=== PATIENT | female | born 1955 | race Caucasian/White ===

== ENCOUNTER 2021-02-19 13:51 | Outpatient (REF) | payer MEDICARE, OTHER, SELFPAY ==
[2021-02-19 15:19] LABS: Influenza A PCR NEGATIVE (Negative); Influenza B PCR NEGATIVE (Negative); Resp Syncy Virus RNA Qual PCR NEGATIVE (Negative); SARS COV2 PCR INHOUSE POSITIVE (Negative)
== END 2021-02-19 13:52 | disposition home or self-care (01) ==
LOC: HO.LNP 13:51
PROVIDERS: Visit Provider Physician Assistant Medical
DX: Z20.822 Contact with and (suspected) exposure to COVID-19 (principal); J06.9 Acute upper respiratory infection, unspecified
CPT/HCPCS: 0241U

== ENCOUNTER 2022-10-30 14:32 | Outpatient (AMB) | payer OTHER, SELFPAY ==
--- NOTE | 2022-10-30 14:58 | AM.OFFWIN_ITS ---
Intake Vital Signs 10/30/22 15:02 Height 5 ft 1 in BP 170/120 H Blood Pressure Location Rt brachial Position Sitting Pulse 94 Pulse Source Pulse Oximeter Temp 97.1 F Temp Source Oral Pulse Oximetry (%) 97 Oxygen Delivery Method Room Air Intake Visit Reasons: [employer]YST[employer]/right hand ring finger bruise Intake Note: Pt is here today for finger bruised and swelling from being caught in door at work. Patient Tobacco Use Status: Never used Tobacco Allergies nifedipine [From PROCARDIA] Allergy (Severe, Verified 10/30/22 15:03) HIVES Procardia Allergy (Unknown, Uncoded 02/19/21 10:38) tachycardia, flushing Do you need a note to return to daycare/school/sports/work: Yes HPI [employer]/right hand ring finger bruise HPI Details Patient is a 66-year-old female comes the walk-in clinic complaining of pain swelling and bruising to the tip of her right 4th finger after she struck it on a door frame pushing a large metal cart early this morning. She did not remove her rings yet. Symptoms have been worsening throughout the day. She states that she has been icing the area and elevating it since the injury. Some tenderness, tingling and decreased range of motion to the tip of the finger. [facility] Social History Patient Tobacco Use Status: Never used Tobacco Review of Systems Const All systems reviewed & are unremarkable except as noted in HPI and below Physical Exam Vital Signs: Last Vital Signs Temp 97.1 F 10/30/22 15:02 Pulse 94 10/30/22 15:02 BP 170/120 H 10/30/22 15:02 Pulse Ox 97 10/30/22 15:02 Oxygen Delivery Method Room Air 10/30/22 15:02 Results Reviewed Results Reviewed: Plain film x-ray today shows nondisplaced tuft fracture of the right ring finger. Assessment & Plan Assessment & Plan (1) Finger fracture: Code(s): S62.609A - Fracture of unspecified phalanx of unspecified finger, initial encounter for closed fracture Qualifiers: Encounter type: initial encounter Finger: ring finger Fracture alignment: nondisplaced Fracture type: closed Laterality: right Phalanx: distal Qualified Code(s): S62.664A - Nondisplaced fracture of distal phalanx of right ring finger, initial encounter for closed fracture Plan: Patient has sustained a nondisplaced closed tuft fracture of the right ring finger. Her rings were removed today, and she was put in a foam and metal finger splint. We discussed keeping it elevated for least 24 hours and icing it every 2-4 hours, until swelling resolves. She was given a work note for light duty starting Thursday, to avoid grasping and pinching with the finger and to working with a splint. She knows she will need to follow up with an occupational Health Clinic or her own provider for full clearance to return to work duties. Orders: Orders XR finger RT min 2V 10/30/22 S69.90XA - Unspecified injury of unspecified wrist, hand and finger(s), initial encounter Coding Level of Care Code Est Pt Level 4 (43373) Diagnoses Finger fracture S62.664A Encounter type: initial encounter Finger: ring finger Fracture alignment: nondisplaced Fracture type: closed Laterality: right Phalanx: distal
[2022-10-30 15:02] VITALS: BP 170/120; PULSE 94; TEMP 36.2; O2SAT 97
== END 2022-10-30 16:00 | disposition home or self-care (01) ==
PROVIDERS: PCP Nurse Practitioner Adult Health; Visit Provider Physician Assistant Medical
DX: S62.664A Nondisplaced fracture of distal phalanx of right ring finger, initial encounter for closed fracture (principal)
CPT/HCPCS: 99214

== ENCOUNTER 2022-10-30 15:10 | Outpatient (REF) | payer OTHER, SELFPAY ==
--- NOTE | ~2022-10-30 | XR_ITS ---
EXAMINATION: XR FINGER, RIGHT CLINICAL INFORMATION: Pain and trauma to right fourth digit COMPARISON: None available. TECHNIQUE: 3 views of the right hand with attention to the ring finger. FINDINGS: The patient has undergone fusion of the DIP joint of the middle finger. There is a nondisplaced fracture of the top of the fourth finger extending to at least the volar articular surface. Arthritic changes are noted in the DIP joint of the little finger, to a lesser extent ring finger at the basal joint of the thumb. XR/XR finger RT min 2V IMPRESSION: 1. Nondisplaced fracture of the distal tuft of the right ring finger. 2. Prior fusion of the DIP joint of the middle finger. 3. Arthropathy of the DIP joint of the ring and little fingers and the basal joint of the thumb with an appearance in the pinky finger suggesting inflammatory osteoarthritis.
== END 2022-10-30 15:11 | disposition home or self-care (01) ==
LOC: HO.HMGCX 15:10
PROVIDERS: Visit Provider Physician Assistant Medical
DX: S69.91XA Unspecified injury of right wrist, hand and finger(s), initial encounter (principal)
CPT/HCPCS: 73140

== ENCOUNTER 2024-09-13 13:45 | Outpatient (AMB) | payer MEDICARE, OTHER, SELFPAY ==
[2024-09-13 13:51] VITALS: BP 168/100; PULSE 96; O2SAT 97; BMI 34.2
--- NOTE | 2024-09-13 13:51 | A.OFFPC_ITS ---
Vital Signs 09/13/24 13:51 Height 5 ft 1 in Weight 181 lb 2 oz BMI 34.2 BP 168/100 H Blood Pressure Location Lt brachial Position Sitting Pulse 96 Pulse Source Pulse Oximeter Pulse Oximetry (%) 97 Oxygen Delivery Method Room Air Intake Visit Reasons: Establish Care Metabolic Specialist Required: No Accompanied by: Self / Same As Patient Allergies nifedipine [From PROCARDIA] Allergy (Severe, Verified 09/13/24 13:51) HIVES Procardia Allergy (Unknown, Uncoded 09/13/24 13:51) tachycardia, flushing Medication List - Last Reconciled 09/13/24 by Tamiko Solis MD acetaminophen 1,000 mg PO Q6H PRN albuterol sulfate 90 mcg/actuation 2 puffs inhalation Q6H PRN aspirin 81 mg PO DAILY atorvastatin 40 mg PO DAILY losartan 50 mg PO DAILY metoprolol succinate ER 25 mg PO DAILY pantoprazole 40 mg PO DAILY Tobacco use date assessed: 09/13/24 Fall risk assessment: No Falls in past year Last assessed Fall Risk: 09/13/24 Dental Screening Dental Screen Date: 09/13/24 Did you have a dental visit in the last 12 months?: No Did you have a dental problem in the last 6 months where you did not have access to dental care?: No Was dental information given to patient?: No PFSH Medical History (Updated 09/13/24 @ 14:32 by Tamiko Solis MD) Polio Surgical History (Updated 09/13/24 @ 14:18 by Tamiko Solis MD) Hx of cholecystectomy S/P NANCY (total abdominal hysterectomy) Hx of tonsillectomy History of appendectomy History of temporal artery biopsy History of lumbar surgery History of bladder surgery Family History (Updated 09/13/24 @ 14:00 by BARI Rolon) Other Pancreatic cancer Stomach cancer Stroke Social History (Updated 09/13/24 @ 14:20 by Tamiko Solis MD) Housing: House Alcohol intake: never Patient Tobacco Use Status: Never used Tobacco e-Cigarette/Vaping Use: Never Used service: No Current occupational status: employed Current occupational exposures/hazards: No Cognitive needs: No Hearing needs: No Vision needs: Yes Questionnaire PHQ-9 Over the last 2 weeks, how often have you been bothered by any of the following problems? 1. Little interest or pleasure in doing things: several days 2. Feeling down, depressed, or hopeless: several days 3. Trouble falling or staying asleep, or sleeping too much: not at all 4. Feeling tired or having little energy: not at all 5. Poor appetite or overeating: not at all 6. Feeling bad about yourself - or that you are a failure or have let yourself or your family down: not at all 7. Trouble concentrating on things, such as reading the newspaper or watching television: not at all 8. Moving or speaking so slowly that other people could have noticed. Or the opposite - being so fidgety or restless that you have been moving around a lot more than usual: not at all 9. Thoughts that you would be better off or of hurting yourself in some way: not at all Total score: 2 Source: Developed by Drs. Camilo Mahoney, Beti Castro, Marc Vasquez and colleagues, with an educational georgi from [employer]. Thrive Questionnaire Date Thrive assessed: 09/13/24 I am a: Patient What is your living situation today?: I have a steady place to live Within the past 12 months, did the food you bought not last and you didn't have the money to get more?: Sometimes True Within the past 12 months, did you worry whether your food would run out before you got money to buy more?: I choose not to answer this question Do you have trouble paying for medicines?: No Do you have trouble getting transportation to medical appointments?: No Do you have trouble paying your heating and electricity bill?: No Do you have trouble taking care of your child, family member or friend?: No Do you have trouble with day-to-day activities such as bathing, preparing meals, shopping, managing finances, etc.?: No Are you currently unemployed and looking for a job?: No Are you interested in more education?: No Please select the resources that you would like help with: None Currently or been in a relationship where the following occur: No concerns reported THRIVE Score: 1 AUDIT C Alcohol Use Questionnaire (AUDIT-C) 1. How often do you have a drink containing alcohol?: Never 3. How often do you have six or more drinks on one occasion?: Never Total Score: 0 JESSICA-7 AMB Questionnaire JESSICA-7 Date JESSICA - 7 assessed: 09/13/24 Feeling nervous, anxious, or on edge: 1 = Several days Not being able to stop or control worryin = Several days Worrying too much about different things: 1 = Several days Trouble relaxin = Not at all Being so restless that it is hard to sit still: 0 = Not at all Becoming easily annoyed or irritable: 0 = Not at all Feeling afraid as if something awful might happen: 1 = Several days Total JESSICA-7 score (0-4 normal; 5-9 mild; 10-14 moderate; 15-21 severe): 4 Source: Developed by Drs. Camilo Mahoney, Beti Castro, Marc Vasquez and colleagues, with an educational georgi from [employer]. Physical exam (Primary Care) Vital Signs: Last Vital Signs Pulse 96 09/13/24 13:51 BP 168/100 H 09/13/24 13:51 Pulse Ox 97 09/13/24 13:51 Oxygen Delivery Method Room Air 09/13/24 13:51 BMI result Body Mass Index 34.2 Tobacco/Smoking Status: Tobacco use Status Tobacco use date assessed 09/13/24 09/13/24 14:01 Patient Tobacco Use Status Never used Tobacco 09/13/24 14:20 e-Cigarette/Vaping Use Never Used 09/13/24 14:20 PHQ-9: PHQ-9 Score PHQ-9: Total score 2 09/13/24 14:01 Thrive Assessment: Date of Thrive Assessment Date Thrive assessed 09/13/24 09/13/24 14:01 Currently or been in a relationship where the following occur: No concerns reported Const General: alert; No acute distress Eyes Conjunctivae: conjunctivae normal Resp Auscultation: clear to auscultation bilaterally Cardio Rate: regular rate Rhythm: regular rhythm GI Inspection: Yes normal to inspection Extrem General: Yes normal to inspection and No edema Coding Level of Care Code New Pt Level 4 (02856) Diagnoses Obesity (BMI 30-39.9) E66.9 Impaired glucose tolerance R73.02 GERD (gastroesophageal reflux disease) K21.9 Hypercholesterolemia E78.00 Hypertension I10 Asthma J45.909 Major depression F32.9 Celiac disease K90.0 Osteopenia M85.80 Breast cancer screening by mammogram Z12.31 Knee pain, left M25.562 Assessment & Plan Assessment & Plan (1) Obesity (BMI 30-39.9): Code(s): E66.9 - Obesity, unspecified Category: Medical Plan: Diet and exercise (2) Impaired glucose tolerance: Code(s): R73.02 - Impaired glucose tolerance (oral) Category: Medical Plan: Decrease the amount of carbohydrate intake, pasta, bread, rice and potatoes are all sugar and that is aside from all the sweet stuff, remember that fruits are good but they are Sweet also. (3) GERD (gastroesophageal reflux disease): Code(s): K21.9 - Gastro-esophageal reflux disease without esophagitis Category: Medical Plan: Avoid the foods that causes that usually spicy foods, tomato products, juices, coffee, soda and foods that your sensitive to. After eating do not lie down, allow 3-4 hours before in lie down. And keep the head of bed above 30 degrees to avoid the acid from going up. (4) Hypercholesterolemia: Code(s): E78.00 - Pure hypercholesterolemia, unspecified Category: Medical Plan: Avoid fried foods, chicken skin, eggs, butter margarine, pastries and meat. Be it pork or beef they have a lot of cholesterol LDL goal of less than 130 and triglyceride of less than 150 patient is on atorvastatin 40 mg once (5) Hypertension: Code(s): I10 - Essential (primary) hypertension Category: Medical Plan: Continue with blood pressure medication. Decrease salt intake and exercise on losartan 50 mg once a day metoprolol 25 mg once a day (6) Asthma: Code(s): J45.909 - Unspecified asthma, uncomplicated Category: Medical (7) Major depression: Code(s): F32.9 - Major depressive disorder, single episode, unspecified Category: Medical (8) Celiac disease: Code(s): K90.0 - Celiac disease Category: Medical (9) Osteopenia: Code(s): M85.80 - Other specified disorders of bone density and structure, unspecified site Category: Medical (10) Breast cancer screening by mammogram: Code(s): Z12.31 - Encounter for screening mammogram for malignant neoplasm of breast Category: Medical (11) Knee pain, left: Code(s): M25.562 - Pain in left knee Category: Medical Plan History of Present Illness The patient is a 68-year-old female presenting for a comprehensive wellness visit and management of chronic conditions. She has a history of hypertension, hypercholesterolemia, gastroesophageal reflux disease (GERD), impaired glucose tolerance, and anxiety disorder. She has been off medications for a period due to losing contact with her previous physician, leading to a hospitalization in June where medications were reinstated. In 2022, an x-ray revealed a nondisplaced fracture of the distal tuft of the right ring finger, with prior fusion of the DIP joint of the middle finger and arthropathy in multiple finger joints, suggesting inflammatory osteoarthritis. The patient reports a history of asthma, managed with an inhaler as needed, and celiac disease, which complicates dietary choices due to gluten restrictions. She has a history of osteopenia, identified in a bone density test two years ago, and polio, which affected her left leg, midsection, and right arm. Atherosclerosis was identified following a biopsy for suspected temporal arteritis, which was negative for autoimmune conditions. The patient also has a hiatal hernia contributing to severe GERD symptoms, including difficulty swallowing at times. 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 - Substance Use: Denies alcohol and recreational drug use, minimal history of smoking - Exercise: Encouraged to exercise regularly to maintain muscle mass - Diet: Advised to focus on plant proteins and reduce sodium intake Review of Systems - Respiratory: Reports asthma, managed with inhaler as needed - Gastrointestinal: Reports severe GERD symptoms, including difficulty swallowing at times - Musculoskeletal: 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 Clear to auscultation bilaterally Cardiovascular: Regular rate and rhythm. Normal S1 and S2 GI: Normal to inspection. Soft to palpation and nontender Skin: No rashes or lesions noted Neuro: Patient oriented x3 Extremities: Normal to inspection Results - X-ray (2022): Nondisplaced fracture of the distal tuft of the right ring finger, prior fusion of the DIP joint of the middle finger, arthropathy in multiple finger joints - Blood work (2019): Normal blood count and electrolytes, mildly elevated glucose, normal liver function tests Plan The patient will continue on atorvastatin 40 mg daily to manage hypercholesterolemia, with a target LDL goal of less than 130 mg/dL and triglycerides less than 150 mg/dL. Blood pressure management will include losartan 50 mg and metoprolol 25 mg daily. For GERD, pantoprazole will be continued to manage symptoms, and dietary modifications will be encouraged to reduce reflux episodes. The patient is advised to avoid high-sodium foods and maintain hydration to support blood pressure control. A referral for counseling and psychiatric evaluation will be made to address anxiety and depression, with an emphasis on non-pharmacological interventions. Regular exercise and a diet focusing on plant proteins are recommended to support overall health and weight management. Preventative care measures include scheduling a mammogram and bone density test, as well as fasting blood work to monitor glucose, cholesterol, thyroid, , and vitamin D levels. Patient was informed and verbally consented to the use of an ambient scribe for clinic note documentation during this visit. Discussion Notes During the visit, I discussed the importance of managing hypercholesterolemia with atorvastatin and maintaining blood pressure control with losartan and metoprolol. We reviewed the need for dietary changes to manage GERD and the importance of hydration and low sodium intake for blood pressure management. I emphasized the role of counseling and psychiatric evaluation for anxiety and depression, highlighting non-pharmacological approaches. Preventative care, including mammogram, bone density test, and fasting blood work, was also discussed to monitor and maintain overall health. Patient Instructions - Continue taking atorvastatin, losartan, and metoprolol as prescribed. - Take pantoprazole for GERD and follow dietary recommendations to reduce symptoms. - Maintain a low-sodium diet and stay hydrated to support blood pressure control. - Engage in regular exercise and focus on a diet rich in plant proteins. - Schedule and attend appointments for mammogram, bone density test, and blood work. - Follow up with counseling and psychiatric evaluation as referred. Orders: Orders Complete Blood Count Auto Diff Today E78.00 - Pure hypercholesterolemia, unspecified MM tomosynthesis screening BI Today Z12.31 - Encounter for screening mammogram for malignant neoplasm of breast Comprehensive Met. Panel Today E78.00 - Pure hypercholesterolemia, unspecified Hemoglobin A1c Today E78.00 - Pure hypercholesterolemia, unspecified Free T4 (Free Thyroxine) Today E78.00 - Pure hypercholesterolemia, unspecified Thyroid Stimulating Hormone Today E78.00 - Pure hypercholesterolemia, unspecified Lipid Panel Today E78.00 - Pure hypercholesterolemia, unspecified Vitamin B12 and Folate Today E78.00 - Pure hypercholesterolemia, unspecified Vitamin D 25-OH Total Today E78.00 - Pure hypercholesterolemia, unspecified XR DEXA axial skeleton Today E78.00 - Pure hypercholesterolemia, unspecified, M81.0 - Age-related osteoporosis without current pathological fracture XR knee LT 2V Today M25.562 - Pain in left knee Referrals Psychiatry Referral F32.9 - Major depressive disorder, single episode, unspecified Psychiatry Outpatient Consultation Service F32.9 - Major depressive disorder, single episode, unspecified Medications: New atorvastatin 40 mg PO DAILY 90 tabs 1RF E78.00 - Pure hypercholesterolemia, unspecified losartan 50 mg PO DAILY 90 tabs 1RF I10 - Essential (primary) hypertension metoprolol succinate ER 25 mg PO DAILY 90 tabs 1RF I10 - Essential (primary) hypertension pantoprazole 40 mg PO DAILY 90 tabs 1RF K21.9 - Gastro-esophageal reflux disease without esophagitis
--- OUTSIDE RECORDS SUMMARY | 2024-09-13 15:45 | XMS_ITS | Clinical Summary ---
Author Organization [facility] Address [address] [place] [address] Care Team Providers Care Bowl Attendant Name Role Phone Kristie Sarabia APRN Primary Care Provider + Social History Tobacco Use Types Packs/Day Years Used Date Smoking Tobacco: Never Assessed Sex and Gender Information Value Date Recorded Sex Assigned at Not on file Gender Identity Not on file Sexual Orientation Not on file Job Start Date Occupation Industry Not on file Not on file Not on file Plan of Treatment Health Maintenance Due Date Last Done Comments Hepatitis C Screening 1955 COVID-19 Vaccine (#1) 05/17/1956 Depression Screening 1967 Preventative Health Evaluation 11/14/1973 DTap / Tdap / Td (1 - Tdap) 11/14/1974 Colon Cancer Screening (Colonoscopy) 11/14/2000 Breast Cancer Screening (Mammogram) 11/14/2005 Shingrix-Zoster Vaccine (1 of 2) 11/14/2005 Fall Risk Assessment 11/14/2020 Osteoporosis Screening (DEXA Scan) 11/14/2020 Pneumococcal Vaccine (1 of 1 - PCV) 11/14/2020 Influenza Vaccine (Season Ended) 2024 RSV Adult > 60+ Yrs or Pregn ant (1 - 1-dose 75+ series) 11/14/2030 Hepatitis B Vaccines Aged Out No long er eligible based on patient's age to complete this topic RSV Ped < 20 months Aged Out No longe r eligible based on patient's age to complete this topic Care Teams Bowl Attendant Relationship Specialty Start Date End Date Kristie Sarabia APRN [address] [facility] [address] [facility] [place] [id number] PCP - General Nurse Practitioner 05/06/17
== END 2024-09-13 14:39 | disposition home or self-care (01) ==
LOC: HO.HMCH 13:46
PROVIDERS: PCP Nurse Practitioner Adult Health; Visit Provider Internal Medicine
DX: K21.9 Gastro-esophageal reflux disease without esophagitis (principal); E66.9 Obesity, unspecified; Z68.34 Body mass index [BMI] 34.0-34.9, adult; R73.02 Impaired glucose tolerance (oral); E78.00 Pure hypercholesterolemia, unspecified; I10 Essential (primary) hypertension; J45.909 Unspecified asthma, uncomplicated; F32.9 Major depressive disorder, single episode, unspecified; K90.0 Celiac disease; M85.80 Other specified disorders of bone density and structure, unspecified site; Z12.31 Encounter for screening mammogram for malignant neoplasm of breast; M25.562 Pain in left knee

== ENCOUNTER → 2024-09-13 13:45 | Outpatient (BNVA) | payer MEDICARE, OTHER, SELFPAY | PROVIDERS: PCP Nurse Practitioner Adult Health; Visit Provider Internal Medicine | DX: E66.9 Obesity, unspecified (principal); Z68.34 Body mass index [BMI] 34.0-34.9, adult; R73.02 Impaired glucose tolerance (oral); K21.9 Gastro-esophageal reflux disease without esophagitis; E78.00 Pure hypercholesterolemia, unspecified; I10 Essential (primary) hypertension; J45.909 Unspecified asthma, uncomplicated; F32.9 Major depressive disorder, single episode, unspecified; K90.0 Celiac disease; M85.80 Other specified disorders of bone density and structure, unspecified site; M25.562 Pain in left knee; Z71.3 Dietary counseling and surveillance | CPT/HCPCS: 99212 ==

== ENCOUNTER 2024-09-16 10:22 | Outpatient (REF) | payer MEDICARE, OTHER, SELFPAY ==
--- OUTSIDE RECORDS SUMMARY | 2024-09-16 10:41 | XMS_ITS | Clinical Summary ---
Author Organization [facility] Address [address] [place] [address] Care Team Providers Care Pediatric Psychologist Name Role Phone Kristie Sarabia APRN Primary [...] age to complete this topic Care Teams Pediatric Psychologist Relationship Specialty Start Date End Date Kristie Sarabia APRN [address] [facility] [address] [facility] [place] [id number] PCP - General Nurse Practitioner 05/06/17
[2024-09-16 13:50] LABS: MANUAL DIFF FLAG NO
[2024-09-16 13:57] LABS: Basophils Percent Auto 0.7 % (0-2); Eosinophils Absolute Auto 0.1 X10*3/uL (0.0-0.4); Eosinophils Percent Auto 0.9 % (0-4); Hematocrit 39.1 % (37.0-47.0); Hemoglobin 12.7 g/dl (12.0-16.0); Imm Gran Abs Auto 0.01 X10*3/uL (0.00-0.03); Imm Gran Pct Auto 0.2 % (0.0-0.4); Lymphocytes Absolute Auto 1.8 X10*3/uL (1.2-4.9); Lymphocytes Percent Auto 33.5 % (20-40); Mean Corpuscular HGB Conc 32.5 g/dl (31.0-35.0); Mean Corpuscular Hemoglobin 30.1 pg (27.0-33.0); Mean Corpuscular Volume 92.7 fL (80.0-98.0); Mean Platelet Volume 9.2 fL (9.4-12.3); Monocytes Absolute Auto 0.3 X10*3/uL (0.1-1.2); Monocytes Percent Auto 6.3 % (2-11); Neutrophils Absolute Auto 3.2 x10*3/uL (2.0-8.3); Neutrophils Percent Auto 58.4 % (45-73); Platelet Count 295 X10*3/uL (160-400); Red Blood Count 4.22 X10*6/uL (4.20-5.50); Red Cell Distribution Width 13.2 % (11.0-16.0); White Blood Count 5.4 X10*3/uL (4.8-10.8)
[2024-09-16 14:11] LABS: Estimated Average Glucose 126 mg/dL; Hemoglobin A1C 140.7364 umol/L; Total Hemoglobin (HGBA1C) 3327.0886 umol/L
[2024-09-16 14:26] LABS: Alanine Aminotransferase 18 U/L (0-31); Albumin Level 4.2 g/dL (3.5-5.0); Alkaline Phosphatase 48 U/L (39-117); Anion Gap 11 (12-20); Aspartate Amino Transferase 25 U/L (5-31); Bilirubin Total 0.5 mg/dL (0.0-1.0); Blood Urea Nitrogen 18 mg/dL (9-16); Calcium 9.3 mg/dL (8.4-10.2); Carbon Dioxide 23 mmol/L (22-29); Chloride 106 mmol/L (96-108); Cholesterol 224 mg/dL (<200); Estimated Glomerular Filt Rate > 60; Glucose Random 106 mg/dL (60-115); HDL Cholesterol 60 mg/dL (>40); LDL Cholesterol Calculated 136 mg/dL (<100); Sodium 136 mmol/L (135-145); Total Protein 7.1 g/dL (6.5-8.0); Triglycerides 142 mg/dL (<150)
[2024-09-16 14:44] LABS: Free T4 (Free Thyroxine) 1.03 ng/dL (0.71-1.85); Thyroid Stimulating Hormone 0.88 uIU/mL (0.32-4.0); Vitamin D 25-OH Total 32.6 ng/mL (>30)
[2024-09-16 14:45] LABS: Vitamin B12 352 pg/mL (200-900)
== END 2024-09-16 10:23 | disposition home or self-care (01) ==
LOC: HO.HMGCLDS 10:22
PROVIDERS: PCP Internal Medicine; Visit Provider Internal Medicine
DX: E78.00 Pure hypercholesterolemia, unspecified (principal)
CPT/HCPCS: 36415; 80053; 80061; 82306; 82607; 82746; 83036; 84439; 84443; 85025

== ENCOUNTER 2024-11-03 13:48 | Outpatient (REF) | payer MEDICARE, OTHER, SELFPAY ==
--- NOTE | ~2024-11-03 | MM_ITS ---
EXAMINATION: DXA BONE DENSITY AXIAL HISTORY: M81.0 - Age-related osteoporosis without current pathological fracture TECHNIQUE: [employer]ia Dual energy absorptiometry (DEXA) of the lumbar spine, total left hip, and femoral neck was performed. COMPARISON: There are no prior studies for comparison. FINDINGS: The bone mineral density of the lumbar spine is 1.214 g/cm2, corresponding to a T-score of 0.1, and a Z-score of 1.2. This is indicative of normal bone mineral density. The bone mineral density of the left total hip is 0.836 g/cm2, corresponding to a T-score of -1.4, and a Z-score of -0.4. This is indicative of osteopenia. The bone mineral density of the left femoral neck is 0.731 g/cm2, corresponding to a T-score of -2.2, and a Z-score of -0.9. This is indicative of osteopenia. FRACTURE RISK: The FRAX index suggests a risk of major osteoporotic fracture of 18.8%, and of hip fracture 3.7%. MM/XR DEXA axial skeleton IMPRESSION: Based on bone mineral density, and according to World Health Organization (WHO) criteria, the diagnosis is consistent with osteopenia. Statistically, 68% of repeat scans fall within 1 SD (+/- 0.010 g/cm2 for AP spine L1-L4) and 1 SD (+/- 0.012 g/cm2 for femur total) FRAX is a trademark of the [employer]'s [place] for Metabolic Bone Disease, a World Health Organization (WHO) Collaborating Center. Electronically signed by: Camilo Shields MD 11/03/2024 02:58 PM EDT
--- NOTE | ~2024-11-03 | MM_ITS ---
EXAMINATION: MM SCREENING DIGITAL BREAST TOMOSYNTHESIS, BILATERAL CLINICAL INFORMATION: Screening. Asymptomatic. COMPARISON: May 03, 2022 and January 17, 2014 TECHNIQUE: Digital breast tomosynthesis is performed in both the craniocaudal and mediolateral oblique views along with computer-aided detection (CAD). FINDINGS: BREAST COMPOSITION: There are scattered areas of fibroglandular density (ACR BI-RADS breast composition Category b). RIGHT BREAST: History of remote excisional biopsy. No significant masses, suspicious calcifications or other abnormalities are seen. LEFT BREAST: No significant masses, suspicious calcifications or other abnormalities are seen. MM/MM tomosynthesis screening BI IMPRESSION: BILATERAL BREASTS: Benign, no mammographic evidence of malignancy. Normal interval follow-up is recommended in 12 months. ASSESSMENT: BI-RADS 2 - Benign Findings RECOMMENDATION: Routine annual mammography screening. FOLLOW-UP: 1 year F/U This examination should not preclude the clinical evaluation of a suspicious palpable abnormality. This patient's information was entered into a reminder system with a target due date for their next mammogram. Electronically signed by: Rosa Maria Hopson MD 11/14/2024 08:20 AM EDT
--- OUTSIDE RECORDS SUMMARY | 2024-11-03 13:55 | XMS_ITS | Clinical Summary ---
Author Organization [facility] Address [address] [place] [address] Care Team Providers Care Strategic Partnership Specialist Name Role Phone Kristie Sarabia APRN Primary [...] of 1 - PCV) 11/14/2020 Influenza Vaccine (#1) 2024 RSV Adult > 60+ Yrs or Pregn ant (1 - 1-dose 75+ series) 11/14/2030 Hepatitis B Vaccines Aged Out No long er eligible based on patient's age to complete this topic RSV Ped < 20 months Aged Out No longe r eligible based on patient's age to complete this topic Care Teams Strategic Partnership Specialist Relationship Specialty Start Date End Date Kristie Sarabia APRN [address] [facility] [address] [facility] [place] [id number] PCP - General Nurse Practitioner 05/06/17
--- OUTSIDE RECORDS SUMMARY | 2024-11-03 13:55 | XMS_ITS | Clinical Summary ---
Author Organization [facility] Address [address] [place] [address] Phone Care Team Providers Care Grinding And Spraying Supervisor Name Role Phone Kristie Sarabia LEADERSHIP DEVELOPMENT INSTRUCTOR Primary Care Provider [phone] Allergies Active Allergy Reactions Criticality Noted Date Comments Nifedipine Rash 07/08/2024 Medications albuterol HFA (PROAIR HFA ; PROVENTIL HFA ; VENTOLIN HFA) 90 mcg/actuation inhaler Inhale 2 puffs by mouth every 6 (six) hours if needed for wheezing or shortness of breath. 5 Active metoprolol succinate (TOPROL-XL) 25 mg 24 hr tablet Take 1 tablet (25 mg total) by mouth 1 (one) time each day. Do not crush or chew. 30 each 5 Active losartan (COZAAR) 50 mg tablet Take 1 tablet (50 mg total) by mouth 1 (one) time each day. 30 each 5 Active Active Problems Problem Noted Date Diagnosed Date Hypertensive urgency 07/10/2024 Chest pain, unspecified type 07/09/2024 Chest pain 07/08/2024 Surgical History Surgery Date Site/Laterality Comments OTHER SURGICAL HISTORY PROCEDURE: CA TONSILLECTOMY PRIMARY/SECONDARY AGE 12/> PARTIAL HYSTERECTOMY PROCEDURE: CA SUPRACERVICAL ABDL HYSTER W/WO RMVL TUBE OVARY HERNIA REPAIR PROCEDURE: CA REPAIR FIRST ABDOMINAL WALL HERNIA APPENDECTOMY PROCEDURE: CA APPENDECTOMY HYSTERECTOMY PROCEDURE: CA VAGINAL HYSTERECTOMY UTERUS 250 GM/< CHOLECYSTECTOMY PROCEDURE: CA LAPAROSCOPY SURG CHOLECYSTECTOMY COLONOSCOPY 03/11/2006 PROCEDURE: CA COLONOSCOPY FLX DX W/COLLJ SPEC WHEN PFRMD; COMMENT: Negative CARPAL TUNNEL RELEASE PROCEDURE: HISTORICAL CARPAL TUNNEL REL BLADDER SURGERY PROCEDURE: HISTORICAL BLADDER SURGERY KNEE SURGERY PROCEDURE: HISTORICAL KNEE SURGERY ESOPHAGOGASTRODUODENOSCOPY 02/21/2014 PROCEDURE: CA ESOPHAGOGASTRODUODENOSCOPY TRANSORAL DIAGNOSTIC; COMMENT: Schatzki's ring, hiatal hernia; Terrazas's esophagus w/chronic inflammation ESOPHAGOGASTRODUODENOSCOPY 04/19/2013 PROCEDURE: CA ESOPHAGOGASTRODUODENOSCOPY TRANSORAL DIAGNOSTIC; COMMENT: Terrazas's mucosa; no dysplasia ESOPHAGOGASTRODUODENOSCOPY 02/03/2012 PROCEDURE: CA ESOPHAGOGASTRODUODENOSCOPY TRANSORAL DIAGNOSTIC; COMMENT: Schatzki's ring (dilation), hiatal hernia Medical History Medical History Date Comments Cervicalgia [id number] DX:Cervicalgia Celiac disease [id number] DX:Celiac diseas e Essential hypertension, benign [id number] D X:Essential hypertension, benign FREDY (obstructive sleep apnea) 12/06/2010 DX :FREDY (obstructive sleep apnea) 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 Ultrasound recommended in 04/[address] Gant Obese 11/05/2010 DX:Obese Schatzki's ring 03/04/2005 DX:Schatzki's ri ng Family History Medical History Relation Name Comments Cataracts Father Heart attack Father age 40 Other cancer Father stomach Macular degeneration Mother ag e 69 Other: copd Mother Blindness Neg Hx Breast cancer Neg Hx Cervical cancer Neg Hx Colon cancer Neg Hx Glaucoma Neg Hx Ovarian cancer Neg Hx Strabismus Neg Hx Relation Name Status Comments Father Mother Social History Tobacco Use Types Packs/Day Years Used Date Smoking Tobacco: Never Smokeless Tobacco: Never Alcohol Use Standard Drinks/Week Comments No 0 (1 standard drink = 0.6 oz pur e alcohol) Interpersonal Safety Answer Date Record ed Physical Abuse 07/09/2024 Verbal Abuse 07/09/2024 Comments Unknown Sex and Gender Information Value Date Recorded Sex Assigned at Female 07/08/2024 1:27 PM EDT Legal Sex Female 2:06 AM EST Gender Identity Female 07/08/2024 1:27 PM EDT Sexual Orientation Straight 07/08/2024 1: 27 PM EDT Obstetrics History Last Filed Vital Signs Vital Sign Reading Time Taken Comments Blood Pressure 201/92 07/29/2024 12:48 PM EDT Pulse 80 07/10/2024 7:27 AM EDT Temperature 36.8 C (98.2 F) 07/10/2024 7:27 AM EDT Respiratory Rate 15 07/10/2024 7:27 AM EDT Oxygen Saturation 95% 07/10/2024 7:27 AM EDT Inhaled Oxygen Concentration - - Weight 83.5 kg (184 lb) 07/29/2024 12:33 PM EDT Height 157.5 cm (5' 2 ) 07/29/2024 12:33 PM EDT Body Mass Index 33.65 07/29/2024 12:33 PM EDT Plan of Treatment Health Maintenance Due Date Last Done Comments Breast Cancer Screening 1955 Hepatitis A Vaccines (1 of 2 - Risk 2-dose series) 11/14/1974 Zoster Vaccines (1 of 2) 11/14/2005 Pneumococcal Vaccine: 50+ Years (2 of 2 - PCV) 03/31/2013 03/31/2012 Hepatitis B Vaccines (1 of 3 - Risk 3-dose series) 2015 RSV Immunization Adult Patients (1 - Risk 60-74 years 1-dose series) 2015 DTaP,Tdap,and Td Vaccines (3 - Td or Tdap) 02/04/2019 02/04/2009, 03/31/1991 Colorectal Cancer Screening: Colonoscopy 03/08/2022 Hepatitis C Screening 03/08/2022 Medicare Annual Wellness Visit 03/08/2022 Osteoporosis Screening (Bone Density Screening) 03/08/2022 Social Influencers of Health Screening 03/08/2022 COVID-19 Vaccine (3 - 2023-2 5 season) 2023 07/07/2020, 06/16/2020 Depression Screening 03/30/2024 Influenza Vaccine (#1) 2024 7, 03/20/2011, 02/06/2010 Falls Risk Assessment 07/10/2025 07/10/2024 Hypertension/CHF/CAD Annual BMP Blood Test 07/10/2025 07/10/2024, 07/09/2024, 07/08/2024 Cholesterol Screening (Lipid Panel) 07/09/2029 07/09/2024 HIB Vaccines Aged Out No longer eligi ble based on patient's age to complete this topic HPV Vaccines Aged Out No longer eligi ble based on patient's age to complete this topic IPV Vaccines Aged Out No longer eligi ble based on patient's age to complete this topic MMR Vaccines Aged Out No longer eligi ble based on patient's age to complete this topic Meningococcal ACWY Vaccine Aged Out N o longer eligible based on patient's age to complete this topic Meningococcal B Vaccine Aged Out No l onger eligible based on patient's age to complete this topic RSV Immunization Patients Under 20 months Aged Out No longer eligible b ased on patient's age to complete this topic Varicella Vaccines Aged Out No longer eligible based on patient's age to complete this topic Procedures Procedure Name Priority Date/Time Associated Diagnosis Comments BASIC METABOLIC PANEL Routine 07/10/2024 5:46 AM EDT LIPID PANEL WITH REFLEX TO DIRECT LDL Routine 07/09/2024 4:42 AM EDT from Last 3 Months or Most Recently Relevant to Health Maintenance Results * (ABNORMAL) Basic metabolic panel (07/10/2024 5:46 AM EDT) Sodium 139 133 - 145 mmol/L LAB CHEMISTRY METHOD 07/10/2024 8:23 AM [facility] Potassium 4.5 3.5 - 5.5 mmol/L LAB CHEMISTRY METHOD 07/10/2024 8:23 AM [facility] Comment:Hemolysis present Chloride 111(H) 96 - 110 mmol/L LAB CHEMISTRY METHOD 07/10/2024 8:23 AM [facility] CO2 22 21 - 32 mmol/L LAB CHEMISTRY METHOD 07/10/2024 8:23 AM [facility] Anion Gap 6 3 - 11 LAB CHEMISTRY METHOD 07/10/2024 8:23 AM EDT [facility] Glucose 101(H) 70 - 100 mg/dL LAB CHEMISTRY METHOD 07/10/2024 8:23 AM T [facility] BUN 26(H) 5 - 25 mg/dL LAB CHEMISTRY METHOD [facility] Creatinine 0.72 0.50 - 1.10 mg/dL LAB CHEMISTRY METHOD 07/10/2024 8:23 AM EDT [facility] eGFR 91 >=60 mL/min/1. 73m2 LAB CHEMISTRY METHOD 07/10/2024 8:23 AM EDT [facility] Comment:Calculation based on the Chronic Kidney Disease Epidemiology Collaboration (CKD-EPI) equation refit without adjustment for race. BUN/Creatinine Ratio 36.1 LAB CHEMISTRY METHOD 07/10/2024 8:23 AM [facility] Calcium 9.2 8.5 - 10.5 mg/dL LAB CHEMISTRY METHOD 07/10/2024 8:23 AM [facility] Blood Venous blood specimen / Unknown Venipuncture / Unknown 07/10/2024 5:46 AM EDT 07/10/2024 7:16 AM EDT us Yoav Hernandez MD LAB BLOOD ORDERABLES F inal Result [facility] [address] [place] [address], * (ABNORMAL) Lipid panel with reflex to direct LDL (07/09/2024 4:42 AM EDT) Cholesterol 222(H) 0 - 200 mg/dL LAB CHEMISTRY METHOD 07/09/2024 6:03 AM EDT [facility] Triglycerides 183(H) 0 - 150 mg/dL LAB CHEMISTRY METHOD 07/09/2024 6:03 AM EDT [facility] HDL 56 >=40 mg/dL LAB CHEMISTRY METHOD 07/09/2024 6:03 AM EDT [facility] LDL Calculated 129(H) 0 - 100 mg/dL LAB CHEMISTRY METHOD 07/09/2024 6:03 AM EDT [facility] VLDL Cholesterol Bert 36.6 mg/dL LAB CHEMISTRY METHOD 07/09/2024 6:03 AM EDT [facility] Non HDL Chol. (LDL+VLDL) 166(H) <145 mg/dL LAB CHEMISTRY METHOD 07/09/2024 6:03 AM EDT [facility] Chol/HDL Ratio 4.0 0.0 - 4.4 LAB CHEMISTRY METHOD 07/09/2024 6:03 AM EDT [facility] Blood Venous blood specimen / Unknown Venipuncture / Unknown 07/09/2024 4:42 AM EDT 07/09/2024 5:30 AM EDT us Johanna HANSEN LAB BLOOD ORDERABLES Final Re sult [facility] [address] [place] [address], from Last 3 Months or Most Recently Relevant to Health Maintenance Insurance MEDICARE [facility] [address] [place] [address] Advance Directives Documents on File Type Date Recorded Patient Director Of Vocational Guidance Expl anation Health Care Decision (hx) 06/02/2014 AD VARGAS DIRECTIVE Health Care Decision (hx) 06/02/2014 AD VARGAS DIRECTIVE Health Care Decision (hx) 06/02/2014 AD VARGAS DIRECTIVE Health Care Decision (hx) 06/02/2014 AD VARGAS DIRECTIVE Health Care Decision (hx) 06/02/2014 AD VARGAS DIRECTIVE * Full Code - Confirmed (Latest Code Status on File) Date Activated Date Inactivated Comments 07/08/2024 4:20 PM 07/10/2024 12:04 PM This code s tatus was ascertained in the following way: Code status discussion: discussion with patient To update the patient's code status, place a code status order. Do not modify or discontinue any currently active code status orders. * Full Code - Default Date Activated Date Inactivated Comments 07/08/2024 3:01 PM 07/08/2024 4:20 PM This is orde r is used when code status has not been discussed with the patient, or code status is otherwise unknown/unconfirmed To update the patient's code status, place a code status order. Do not modify or discontinue any currently active code status orders. Care Teams Grinding And Spraying Supervisor Relationship Specialty Start Date End Date Kristie Sarabia NP [address] [place] [address] [address] [place], [place] PCP - General Internal Medicine 06/07/18
== END 2024-11-03 13:49 | disposition home or self-care (01) ==
LOC: HO.MAMMO 13:48
PROVIDERS: Visit Provider Internal Medicine
DX: Z12.31 Encounter for screening mammogram for malignant neoplasm of breast (principal); M81.0 Age-related osteoporosis without current pathological fracture; E78.00 Pure hypercholesterolemia, unspecified
CPT/HCPCS: 77063; 77067; 77080

== ENCOUNTER → 2024-11-03 14:30 | Outpatient (BNV) | payer MEDICARE, OTHER, SELFPAY | PROVIDERS: Visit Provider Radiology Diagnostic Radiology | DX: E28.39 Other primary ovarian failure (principal) | CPT/HCPCS: 77080 ==

== ENCOUNTER 2025-01-27 14:24 | Outpatient (AMB) | payer MEDICARE, OTHER, SELFPAY ==
[2025-01-27 14:26] VITALS: BP 180/110; PULSE 84; TEMP 36.2; O2SAT 97; BMI 35.0
--- NOTE | 2025-01-27 14:26 | A.OFFPC_ITS ---
Vital Signs 01/27/25 14:26 Height 5 ft 1 in Weight 185 lb BMI 35.0 BP 180/110 H Blood Pressure Location Lt brachial Position Sitting Pulse 84 Pulse Source Pulse Oximeter Temp 97.1 F Temp Source Temporal Artery Scan Pulse Oximetry (%) 97 Oxygen Delivery Method Room Air Intake Visit Reasons: PE Intake Note: Pt forgot to take BP meds today. 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 Accompanied by: Self / Same As Patient Allergies nifedipine (From PROCARDIA) Allergy (Severe, Verified 01/27/25 14:27) HIVES Procardia Allergy (Unknown, Uncoded 09/13/24 13:51) tachycardia, flushing Medication List - Last Reconciled 01/27/25 by Tamiko Solis MD acetaminophen 1,000 mg PO Q6H PRN albuterol sulfate 90 mcg/actuation 2 puffs inhalation Q6H PRN atorvastatin 40 mg PO DAILY losartan 50 mg PO DAILY metoprolol succinate ER 25 mg PO DAILY pantoprazole 40 mg PO DAILY Tobacco use date assessed: 01/27/25 Fall risk assessment: No Falls in past year Last assessed Fall Risk: 09/13/24 Dental Screening Dental Screen Date: 01/27/25 Did you have a dental visit in the last 12 months?: No Did you have a dental problem in the last 6 months where you did not have access to dental care?: No Was dental information given to patient?: No HPI PE HPI Details LLQ pain 2 weeks PFSH Medical History Polio Surgical History Hx of cholecystectomy S/P NANCY (total abdominal hysterectomy) Hx of tonsillectomy History of appendectomy History of temporal artery biopsy History of lumbar surgery History of bladder surgery Family History (Updated 01/27/25 @ 15:03 by Tamiko Solis MD) Father Pancreatic cancer Myocardial infarct Daughter Cervical cancer Mother Myocardial infarct Other Stomach cancer Stroke Social History (Updated 01/27/25 @ 15:03 by Tamiko Solis MD) Housing: House Alcohol intake: never Patient Tobacco Use Status: Never used Tobacco e-Cigarette/Vaping Use: Never Used service: No Current occupational status: employed Current occupational exposures/hazards: No Cognitive needs: No Hearing needs: No Vision needs: Yes Questionnaire PHQ-9 Over the last 2 weeks, how often have you been bothered by any of the following problems? 1. Little interest or pleasure in doing things: several days 2. Feeling down, depressed, or hopeless: several days 3. Trouble falling or staying asleep, or sleeping too much: not at all 4. Feeling tired or having little energy: not at all 5. Poor appetite or overeating: not at all 6. Feeling bad about yourself - or that you are a failure or have let yourself or your family down: not at all 7. Trouble concentrating on things, such as reading the newspaper or watching television: not at all 8. Moving or speaking so slowly that other people could have noticed. Or the opposite - being so fidgety or restless that you have been moving around a lot more than usual: not at all 9. Thoughts that you would be better off or of hurting yourself in some way: not at all Total score: 2 Source: Developed by Drs. Camilo Mahoney, Beti Castro, Marc Vasquez and colleagues, with an educational georgi from [employer]. Thrive Questionnaire Date Thrive assessed: 01/27/25 I am a: Patient What is your living situation today?: I have a steady place to live Within the past 12 months, did the food you bought not last and you didn't have the money to get more?: Sometimes True Within the past 12 months, did you worry whether your food would run out before you got money to buy more?: I choose not to answer this question Do you have trouble paying for medicines?: No Do you have trouble getting transportation to medical appointments?: No Do you have trouble paying your heating and electricity bill?: No Do you have trouble taking care of your child, family member or friend?: No Do you have trouble with day-to-day activities such as bathing, preparing meals, shopping, managing finances, etc.?: No Are you currently unemployed and looking for a job?: No Are you interested in more education?: No Please select the resources that you would like help with: None Currently or been in a relationship where the following occur: No concerns re ported THRIVE Score: 1 AUDIT C Alcohol Use Questionnaire (AUDIT-C) 1. How often do you have a drink containing alcohol?: Never 3. How often do you have six or more drinks on one occasion?: Never Total Score: 0 JESSICA-7 AMB Questionnaire JESSICA-7 Date JESSICA - 7 assessed: 01/27/25 Feeling nervous, anxious, or on edge: 1 = Several days Not being able to stop or control worryin = Several days Worrying too much about different things: 1 = Several days Trouble relaxin = Not at all Being so restless that it is hard to sit still: 0 = Not at all Becoming easily annoyed or irritable: 0 = Not at all Feeling afraid as if something awful might happen: 1 = Several days Total JESSICA-7 score (0-4 normal; 5-9 mild; 10-14 moderate; 15-21 severe): 4 Source: Developed by Drs. Camilo Mahoney, Beti Castro, Marc Vasquez and colleagues, with an educational georgi from [employer]. Review of Systems Const Denies poor appetite and Denies weakness Eyes Denies no additional complaints ENT Reports Normal hearing present, Denies dizziness, Denies nasal congestion, Den ies tinnitus and Denies sore throat Card Denies chest pain, Denies syncope, Denies rapid heart rate and Denies dyspnea Resp Denies cough and Denies dyspnea GI Denies change in stool character, Reports constipation, Denies diarrhea, Denies nausea and Denies vomiting Denies urinary frequency, Denies difficulty voiding and Denies dysuria Neuro Reports Normal hearing present, Denies confusion, Denies dizziness, Denies syncope and Denies weakness Psych Denies confusion Physical exam (Primary Care) Vital Signs: Last Vital Signs Temp 97.1 F 01/27/25 14:26 Pulse 84 01/27/25 14:26 BP 180/110 H 01/27/25 14:26 Pulse Ox 97 01/27/25 14:26 Oxygen Delivery Method Room Air 01/27/25 14:26 BMI result Body Mass Index 35.0 Tobacco/Smoking Status: Tobacco use Status Tobacco use date assessed 01/27/25 01/27/25 14:28 Patient Tobacco Use Status Never used Tobacco 01/27/25 15:03 e-Cigarette/Vaping Use Never Used 01/27/25 15:03 PHQ-9: PHQ-9 Score PHQ-9: Total score 2 01/27/25 14:56 Thrive Assessment: Date of Thrive Assessment Date Thrive assessed 01/27/25 01/27/25 14:28 Currently or been in a relationship where the following occur: No concerns reported Const General: No confusion Orientation/consciousness: No confusion HENMT Head: Yes normocephalic Ears: external ears normal and TM's normal bilaterally Face and sinus: Yes normal facial exam Mouth: moist mucous membranes Throat: Yes tonsils normal Eyes Conjunctivae: conjunctivae normal Pupils: Equal, round and reactive pupils present and Pupil accommodation reflex normal Direct Ophthalmoscopy: normal light reflex Neck Neck: No lymphadenopathy Thyroid: Thyroid normal Chest Chest palpation & inspection: normal inspection of the chest Resp Effort & Inspection: normal respiratory effort and no audible wheezes Auscultation: clear to auscultation bilaterally, no crackles, no wheezes and lung sounds not diminished Cardio Rate: regular rate Rhythm: regular rhythm Peripheral pulses: radial pulses present and dorsalis pedis present GI Palpation (GI): no masses Auscultation: normal bowel sounds and normoactive bowel sounds Rectal Exam - Female: deferred Skin General skin exam: no rashes or lesions noted Rashes: no rashes Neuro General: No confusion Cranial nerves: Yes Equal, round and reactive pupils present and Yes Normal hearing present Cognition (Neuro): normal cognition Gait exam (Neuro): Normal gait present Motor exam (neuro): 5/5 motor strength present throughout Deep tendon reflexes (DTR's): Right brachioradialis reflex intensity grade: 2+, Left brachioradialis reflex intensity grade: 2+, Right patellar reflex intensity grade: 2+ and Left patellar reflex intensity grade: 2+ Extrem General: No edema Coding Level of Care Code Est Pt Prev Care >65y(19400) Diagnoses Annual physical exam Z00.00 Hypertension I10 Hypercholesterolemia E78.00 Impaired glucose tolerance R73.02 Obesity (BMI 30-39.9) E66.9 Osteopenia M85.80 Generalized anxiety disorder F41.1 GERD (gastroesophageal reflux disease) K21.9 Asthma J45.909 Skin tag, acquired L91.8 Assessment & Plan Assessment & Plan (1) Annual physical exam: Code(s): Z00.00 - Encounter for general adult medical examination without abnormal findings Category: Medical Plan: Patient is advised to eat healthy, keep well hydrated, keep active and have adequate sleep. (2) Hypertension: Code(s): I10 - Essential (primary) hypertension Category: Medical Plan: Continue with blood pressure medication. Decrease salt intake and exercise patient on losartan 50 mg once a day metoprolol 25 mg once a day (3) Hypercholesterolemia: Code(s): E78.00 - Pure hypercholesterolemia, unspecified Category: Medical Plan: Avoid fried foods, chicken skin, eggs, butter margarine, pastries and meat. Be it pork or beef they have a lot of cholesterol LDL goal of less than 130 and triglyceride of less than 150 on atorvastatin 40 mg once a day (4) Impaired glucose tolerance: Code(s): R73.02 - Impaired glucose tolerance (oral) Category: Medical Plan: Decrease the amount of carbohydrate intake, pasta, bread, rice and potatoes are all sugar and that is aside from all the sweet stuff, remember that fruits are good but they are Sweet also. (5) Obesity (BMI 30-39.9): Code(s): E66.9 - Obesity, unspecified Category: Medical Plan: Diet and exercise (6) Osteopenia: Code(s): M85.80 - Other specified disorders of bone density and structure, unspecified site Category: Medical Plan: Patient is up-to-date with bone density discussed about calcium, vitamin-D discussed about options (7) Generalized anxiety disorder: Code(s): F41.1 - Generalized anxiety disorder Category: Medical Plan: Stable (8) GERD (gastroesophageal reflux disease): Code(s): K21.9 - Gastro-esophageal reflux disease without esophagitis Category: Medical (9) Asthma: Code(s): J45.909 - Unspecified asthma, uncomplicated Category: Medical (10) Skin tag, acquired: Comment: back Code(s): L91.8 - Other hypertrophic disorders of the skin Category: Medical Plan History of Present Illness The patient is a 69-year-old obese female presenting for an annual wellness exam. She has a past medical history of hypertension, hypercholesterolemia, GERD, impaired glucose tolerance, generalized anxiety disorder, asthma, celiac disease, and osteopenia. Regarding her hypertension, she is prescribed losartan 50 mg and metoprolol 25 mg daily. The patient reports not checking her blood pressure regularly at home and admitted to not taking her medication this morning. For hypercholesterolemia, she takes atorvastatin 40 mg daily. Blood work from August showed an LDL of 136 mg/dL, which is above her goal of less than 130 mg/dL. She reports a significant family history of high cholesterol, with her father requiring surgery and her daughter developing pancreatitis due to high cholesterol. Her lab work from August also revealed impaired glucose tolerance, with a fasting blood sugar of 106 mg/dL and a hemoglobin A1c of 6.0%, consistent with prediabetes. Her current management plan involves diet and exercise. The patient reports new, localized abdominal pain for the past two weeks, which she can pinpoint. She associates the pain with gas and reports her bowel movements have been different, with occasional constipation rather than the diarrhea she usually experiences with her celiac disease. She has a history of GERD and is taking pantoprazole but continues to experience heartburn a couple of times a week, depending on her diet. Past endoscopies revealed a small hiatal hernia and a Schatzki's ring, for which she has undergone esophageal dilation a couple of times. The patient has a history of significant urinary incontinence, for which she wears a pad constantly. This began after a Rontnblc-Zlgkknhcy-Uugynj procedure at age 28, and past medication trials were not effective. Her history also includes asthma, for which she has an albuterol inhaler but has not used it in a while. She has allergies to phentipine and Procardia, which caused hives. Her family history is significant for pancreatic cancer, stomach cancer, stroke, and heart attack in her father. Her mother had a fatal heart attack and emphysema, and her daughter had cervical cancer. For health maintenance, her mammogram and colonoscopy are up to date. A bone density scan in October 2024 showed osteopenia with a T-score of -1.4 in the hip. She recently had an eye exam and was diagnosed with early cataracts and glaucoma in the right eye. Socially, the patient does not drink alcohol and has a remote history of smoking only a few cigarettes in her youth. Health Maintenance A referral will be placed to dermatology for a painful skin tag. Vaccination status was reviewed; the patient is due for a tetanus shot and has not completed the shingles series, but she declined immunizations today. The patient will follow up in three months for reassessment of blood pressure, cholesterol, and blood sugar, with fasting labs to be completed prior to the visit. Social History - Substance Use: The patient denies any alcohol use and cannot recall the last time she had an alcoholic beverage. - She reports having smoked about four cigarettes in her entire life as a child and did not like it. - Employment: The patient is currently working. - Activity: The patient reports she moves around at work. - She has access to a gym. - Nutrition: The patient was counseled to reduce intake of pasta, bread, rice, potatoes, and sweet foods. - She was advised to avoid all soda, including diet soda, and to increase water intake. - She was advised to increase fiber intake through green leafy vegetables. Review of Systems - General: Denies fevers. - Eyes: Reports a recent diagnosis of early cataracts and glaucoma in the right eye. - ENT: Reports hearing is fine and denies dysphagia. - Cardiovascular: Denies chest heaviness. - Respiratory: Denies waking up short of breath. - Gastrointestinal: Reports heartburn a couple of times per week. - Reports a new localized abdominal pain for two weeks with associated gas and a change in bowel movements to intermittent constipation. - Denies nausea or vomiting. - Denies blood in stools. - Genitourinary: Reports significant urinary leakage requiring constant use of a pad and nocturia. - Neurological: Denies syncope or dizziness. - Musculoskeletal: Denies falls. - Skin: Reports a painful skin tag. Physical Exam General: Cooperative, healthy appearing, comfortable, no acute distress and well developed Orientation: Patient oriented x3 Limitations: No limitations Head: Normal to inspection Ears: Hearing grossly normal bilaterally Nose: Normal external nose present Face and sinus: Normal facial exam Eyes: Appearance normal, both eyes and all related structures Neck: Normal visual inspection and Yes full ROM Respiratory: Normal respiratory effort and able to speak in complete sentences. Clear to auscultation bilaterally Cardiovascular: Regular rate and rhythm. Normal S1 and S2 GI: Normal to inspection. Soft to palpation and nontender, except for mild tenderness in the lower abdomen Skin: No rashes or lesions noted, presence of skin tags Neuro: Patient oriented x3 Extremities: Normal to inspection Results - Labs (from August): - CBC: Blood count is normal, patient is not anemic. - Comprehensive Metabolic Panel: Electrolytes (sodium, potassium) and kidney function are normal. - Fasting blood sugar is elevated at 106 mg/dL. - Liver numbers are fine. - Hemoglobin A1c: 6.0%. - Lipid Panel: LDL cholesterol is elevated at 136 mg/dL. - HDL is high. - Other Labs: Vitamin B12, vitamin D, folic acid, and thyroid levels are all within normal limits. - Tests and Diagnostics: - Bone Density Scan (DEXA): Shows normal bone mineral density in the spine but osteopenia in the hip, with a T-score of -1.4. Plan Patient was informed and verbally consented to the use of an ambient scribe for clinic note documentation during this visit. 1. Essential Hypertension The patient's blood pressure was significantly elevated in the office at 180/90 mmHg, and she reported not taking her medication this morning. The risks of uncontrolled hypertension, specifically stroke, were discussed. The plan is for the patient to monitor her blood pressure at home once daily for a few days after a period of rest and to send the readings for review. Medication adjustment will be considered if the readings are consistently high. 2. Hypercholesterolemia The patient's LDL cholesterol is 136 mg/dL, which is above the goal of less than 130 mg/dL, despite being on atorvastatin 40 mg. The patient declined an increase in medication, opting instead to focus on dietary changes. A follow-up with kenzie moss fasting labs, including a lipid panel, is planned in three months. 3. Prediabetes Lab results show a hemoglobin A1c of 6.0% and a fasting glucose of 106 mg/dL, confirming a diagnosis of prediabetes. The patient was counseled to watch her sugar intake and modify her diet by reducing carbohydrates such as pasta, bread, rice, potatoes, and sweets, and to avoid all sodas, including diet drinks. Fasting labs will be rechecked in three months. 4. Obesity The patient inquired about injectable weight loss medications. After discussing the mechanism, risks (including worsening heartburn), benefits, and logistical challenges (availability, cost), a prescription for Zepbound at the lowest dose will be provided. The patient was instructed that this is a once-weekly self- injection and to message for a dose increase after three weeks if there is no weight change. The importance of increasing physical activity and making dietary changes in conjunction with the medication was emphasized. 5. Abdominal Pain The patient reports a two-week history of localized abdominal pain with associated gas and intermittent constipation. Initial management will be to increase dietary fiber (green leafy vegetables) and ensure adequate hydration. If the pain persists, a referral to gastroenterology will be considered. 6. Osteopenia A bone density scan shows osteopenia of the hip. Management consists of ensuring adequate calcium and vitamin D intake and staying physically active. The patient declined prescription medications for bone strengthening at this time. Discussion Notes I expressed my concern to the patient regarding her significantly elevated blood pressure of 180/90 mmHg, especially since she had missed her morning dose of medication. I emphasized the serious risk of stroke associated with uncontrolled hypertension. We agreed that she would monitor her blood pressure at home for several days and report the readings to me, at which point we will discuss p otential medication adjustments. We reviewed her recent lab work, noting her elevated LDL cholesterol of 136 and hemoglobin A1c of 6.0, which indicates prediabetes. I counseled her on dietary modifications, including reducing her intake of carbohydrates and sugars and avoiding all forms of soda. The patient was interested in weight loss medications, and we discussed the use of GLP-1 agonists like Zepbound. I explained that these medications work by slowing gut motility, which can aid in weight loss but may worsen her heartburn. I also informed her about the common challenges with availability and insurance coverage, the lack of long-term safety data, and the importance of using the medication as a tool alongside lifestyle changes. I will send a prescription for the starting dose. We also discussed her new abdominal pain, her bone density results showing osteopenia, and her painful skin tag, for which I will provide a dermatology referral. I plan to see her back in my office in three months for a follow-up visit, with repeat fasting labs to be done beforehand. Patient Instructions - Please take your blood pressure medication every day as prescribed. - Check your blood pressure once a day for the next few days. - Before checking, sit down and rest for 3-5 minutes. - Please send me a message through the patient portal with your readings. - To help with your blood sugar and cholesterol, please reduce your intake of foods like pasta, bread, rice, potatoes, and sweets. - Avoid drinking all types of soda, incluindo diet soda. - I am sending a prescription for a weight loss injection called Zepbound to your pharmacy. - This is a once-a-week injection that you will give yourself. - Please be aware that your insurance may not cover the cost. - For your abdominal pain, try to eat more fiber, such as green leafy vegetables, and drink plenty of water. - Continue to take calcium and vitamin D for your bone health. - A referral has been made for you to see a document review specialist (rooter operator) about your skin tag. - Please schedule a follow-up appointment in three months. - You will need to have fasting blood work done before that visit. Orders: Orders Hemoglobin A1c 3 Months R73.02 - Impaired glucose tolerance (oral) Lipid Panel 3 Months E78.00 - Pure hypercholesterolemia, unspecified, R73.02 - Impaired glucose tolerance (oral) Complete Blood Count Auto Diff 3 Months R73.02 - Impaired glucose tolerance (o ral) Comprehensive Met. Panel 3 Months R73.02 - Impaired glucose tolerance (oral) Referrals Dermatology Referral L91.8 - Other hypertrophic disorders of the skin Medications: New tirzepatide (weight loss) (Zepbound) for 4 weeks 2.5 mg (0.5 mL) subcut QWEEK 2 mL 1RF E66.9 - Obesity, unspecified
--- OUTSIDE RECORDS SUMMARY | 2025-01-27 15:04 | XMS_ITS | Clinical Summary ---
Author Organization [facility] Address [address] [place] [address] Care Team Providers Care Freelance Graphic Designer Name Role Phone Kristie Sarabia APRN Primary [...] age to complete this topic Care Teams Freelance Graphic Designer Relationship Specialty Start Date End Date Kristie Sarabia APRN [address] [facility] [address] [facility] [place] [id number] PCP - General Nurse Practitioner 05/06/17
--- OUTSIDE RECORDS SUMMARY | 2025-01-27 15:04 | XMS_ITS | Clinical Summary ---
Author Organization [facility] Address [address] [place] [address] Phone Care Team Providers Care Thermostat Maker Name Role Phone Kristie Sarabia MUSICAL ENGINEER Primary Care Provider [phone]- [phone] Allergies Active Allergy Reactions Criticality Noted Date [...] Date Site/Laterality Comments OTHER SURGICAL HISTORY PROCEDURE: ID TONSILLECTOMY PRIMARY/SECONDARY AGE 12/> PARTIAL HYSTERECTOMY PROCEDURE: ID SUPRACERVICAL ABDL HYSTER W/WO RMVL TUBE OVARY HERNIA REPAIR PROCEDURE: ID REPAIR FIRST ABDOMINAL WALL HERNIA APPENDECTOMY PROCEDURE: ID APPENDECTOMY HYSTERECTOMY PROCEDURE: ID VAGINAL HYSTERECTOMY UTERUS 250 GM/< CHOLECYSTECTOMY PROCEDURE: ID LAPAROSCOPY SURG CHOLECYSTECTOMY COLONOSCOPY 03/11/2006 PROCEDURE: ID COLONOSCOPY FLX DX W/COLLJ SPEC WHEN PFRMD; COMMENT: Negative CARPAL TUNNEL RELEASE PROCEDURE: HISTORICAL CARPAL TUNNEL REL BLADDER SURGERY PROCEDURE: HISTORICAL BLADDER SURGERY KNEE SURGERY PROCEDURE: HISTORICAL KNEE SURGERY ESOPHAGOGASTRODUODENOSCOPY 02/21/2014 PROCEDURE: ID ESOPHAGOGASTRODUODENOSCOPY TRANSORAL DIAGNOSTIC; COMMENT: Schatzki's ring, hiatal hernia; Terrazas's esophagus w/chronic inflammation ESOPHAGOGASTRODUODENOSCOPY 04/19/2013 PROCEDURE: ID ESOPHAGOGASTRODUODENOSCOPY TRANSORAL DIAGNOSTIC; COMMENT: Terrazas's mucosa; no dysplasia ESOPHAGOGASTRODUODENOSCOPY 02/03/2012 PROCEDURE: ID ESOPHAGOGASTRODUODENOSCOPY TRANSORAL DIAGNOSTIC; COMMENT: Schatzki's ring (dilation), hiatal hernia Medical History Medical History Date Comments Cervicalgia 459052 DX:Cervicalgia Celiac disease 863660 DX:Celiac diseas e Essential hypertension, benign 705766 D X:Essential hypertension, benign FREDY (obstructive sleep apnea) 12/06/2010 DX :FREDY (obstructive sleep apnea) Terrazas esophagus 03/04/2005 DX:Terrazas eso phagus Asthma 11/29/2004 DX:Asthma GERD (gastroesophageal reflux disease) 12/06/2010 DX:GERD (gastroesophageal reflux disease) Other specified disorders of liver 09/20/2008 DX:Other specified disorders of liver; COMMENT: 6-mm lesion on CT at [facility] [place]. Ultrasound recommended in 04/[address] Gant [...] Safety Answer Date Record ed Physical Abuse Unrecognized value 07/09/2024 Verbal Abuse Unrecognized value 07/09/2024 Comments Unknown Sex and Gender Information [...] Last Done Comments Breast Cancer Screening 1955 Colorectal Cancer Screening: Colonoscopy 1955 Hepatitis A Vaccines (1 of 2 - Risk 2-dose series) 11/14/1974 RSV Immunization Adult Patients (1 - Risk 50-74 years 1-dose series) 11/14/2005 Zoster Vaccines (1 of 2) 11/14/2005 Pneumococcal Vaccine: 50+ Years (2 of 2 - PCV) 03/31/2013 03/31/2012 Hepatitis B Vaccines (1 of 3 - Risk 3-dose series) 2015 DTaP,Tdap,and Td Vaccines (3 - Td or Tdap) 02/04/2019 02/04/2009, 03/31/1991 Hepatitis C Screening 03/08/2022 Medicare Annual Wellness Visit 03/08/2022 Osteoporosis Screening (Bone Density Screening) 03/08/2022 Social Influencers of Health Screening 03/08/2022 Depression Screening 03/30/2024 COVID-19 Vaccine (3 - 2024-2 6 season) 2024 07/07/2020, 06/16/2020 Influenza Vaccine (#1) 2024 7, 03/20/2011, 02/06/2010 [...] mmol/L LAB CHEMISTRY METHOD 07/10/2024 8:23 AM [facility] Potassium 4.5 3.5 - 5.5 mmol/L LAB CHEMISTRY METHOD 07/10/2024 8:23 AM [facility] Comment:Hemolysis present Chloride 111(H) 96 - 110 mmol/L LAB CHEMISTRY METHOD 07/10/2024 8:23 AM [facility] CO2 22 21 - 32 mmol/L LAB CHEMISTRY METHOD 07/10/2024 8:23 AM [facility] Anion Gap 6 3 - 11 LAB CHEMISTRY METHOD 07/10/2024 8:23 AM EDT [facility] Glucose 101(H) 70 - 100 mg/dL LAB CHEMISTRY METHOD 07/10/2024 8:23 AM T [facility] BUN 26(H) 5 - 25 mg/dL LAB CHEMISTRY METHOD 07/10/2024 8:23 AM [facility] Creatinine 0.72 0.50 - 1.10 mg/dL LAB CHEMISTRY METHOD 07/10/2024 8:23 AM EDT [facility] eGFR 91 >=60 mL/min/1. 73m2 LAB CHEMISTRY METHOD 07/10/2024 8:23 AM EDT [facility] Comment:Calculation based on the Chronic Kidney Disease Epidemiology Collaboration (CKD-EPI) equation refit without adjustment for race. BUN/Creatinine Ratio 36.1 LAB CHEMISTRY METHOD 07/10/2024 8:23 AM [facility] Calcium 9.2 8.5 - 10.5 mg/dL LAB CHEMISTRY METHOD 07/10/2024 8:23 AM [facility] Blood Venous blood specimen / Unknown Venipuncture / Unknown 07/10/2024 5:46 AM EDT 07/10/2024 7:16 AM EDT us Yoav Hernandez MD LAB BLOOD ORDERABLES F inal Result [facility] [address] [place] [address], * (ABNORMAL) Lipid panel with reflex to direct LDL (07/09/2024 4:42 AM EDT) Cholesterol 222(H) 0 - 200 mg/dL LAB CHEMISTRY METHOD 07/09/2024 6:03 AM EDT [facility] Triglycerides 183(H) 0 - 150 mg/dL LAB CHEMISTRY METHOD 07/09/2024 6:03 AM EDT [facility] HDL 56 >=40 mg/dL LAB CHEMISTRY METHOD 07/09/2024 6:03 AM EDT [facility] LDL Calculated 129(H) 0 - 100 mg/dL LAB CHEMISTRY METHOD 07/09/2024 6:03 AM EDT [facility] VLDL Cholesterol Bert 36.6 mg/dL LAB CHEMISTRY METHOD 07/09/2024 6:03 AM EDT [facility] Non HDL Chol. (LDL+VLDL) 166(H) <145 mg/dL LAB CHEMISTRY METHOD 07/09/2024 6:03 AM EDT [facility] Chol/HDL Ratio 4.0 0.0 - 4.4 LAB CHEMISTRY METHOD 07/09/2024 6:03 AM EDT [facility] Blood Venous blood specimen / Unknown Venipuncture / Unknown 07/09/2024 4:42 AM EDT 07/09/2024 5:30 AM EDT us Johanna HANSEN LAB BLOOD ORDERABLES Final Re sult [facility] [address] [place] [address], from Last 3 Months or Most Recently Relevant to [place] [id number] [facility] [address] [place] [address] Advance Directives Documents on File Type Date Recorded 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 Care Teams Thermostat Maker Relationship Specialty Start Date End Date Kristie Sarabia NP [address] [place] [address] [address] [place], [place] PCP - General Internal Medicine 06/07/18
== END 2025-01-27 15:33 | disposition home or self-care (01) ==
LOC: HO.HMCH 14:25
PROVIDERS: PCP Internal Medicine; Visit Provider Internal Medicine
DX: Z00.00 Encounter for general adult medical examination without abnormal findings (principal); I10 Essential (primary) hypertension; E66.9 Obesity, unspecified; Z68.35 Body mass index [BMI] 35.0-35.9, adult; E78.00 Pure hypercholesterolemia, unspecified; R73.02 Impaired glucose tolerance (oral); M85.80 Other specified disorders of bone density and structure, unspecified site; F41.1 Generalized anxiety disorder; K21.9 Gastro-esophageal reflux disease without esophagitis; J45.909 Unspecified asthma, uncomplicated; L91.8 Other hypertrophic disorders of the skin

== ENCOUNTER → 2025-01-27 14:24 | Outpatient (BNVA) | payer MEDICARE, OTHER, SELFPAY | PROVIDERS: PCP Internal Medicine; Visit Provider Internal Medicine | DX: Z00.00 Encounter for general adult medical examination without abnormal findings (principal); I10 Essential (primary) hypertension; E78.00 Pure hypercholesterolemia, unspecified; R73.02 Impaired glucose tolerance (oral); E66.9 Obesity, unspecified; M85.80 Other specified disorders of bone density and structure, unspecified site; F41.1 Generalized anxiety disorder; K21.9 Gastro-esophageal reflux disease without esophagitis; J45.909 Unspecified asthma, uncomplicated; L91.8 Other hypertrophic disorders of the skin; Z13.31 Encounter for screening for depression; Z13.39 Encounter for screening examination for other mental health and behavioral disorders | CPT/HCPCS: 96127; 99397 ==

== ENCOUNTER 2025-03-15 10:25 | Outpatient (AMB) | payer MEDICARE, OTHER, SELFPAY ==
--- NOTE | 2025-03-15 10:31 | A.OFFPC_ITS ---
Vital Signs 03/15/25 10:43 Height 5 ft 1 in Weight 182 lb BMI 34.4 BP 168/82 H Blood Pressure Location Rt brachial Position Sitting Respiration 14 Pulse 62 Temp 97.3 F Temp Source Tympanic Intake Visit Reasons: Lump on left shoulder, painful Intake Note: Patient noticed a lump on left shoulder, painful to touch, no known injury Accompanied by: Self / Same As Patient Allergies nifedipine (From PROCARDIA) Allergy (Severe, Verified 03/15/25 10:38) HIVES Procardia Allergy (Unknown, Uncoded 09/13/24 13:51) tachycardia, flushing Medication List - Last Reconciled 03/15/25 by Miguel Angel Funez MD acetaminophen 1,000 mg PO Q6H PRN albuterol sulfate 90 mcg/actuation 2 puffs inhalation Q6H PRN atorvastatin 40 mg PO DAILY losartan 50 mg PO DAILY metoprolol succinate ER 25 mg PO DAILY pantoprazole 40 mg PO DAILY tirzepatide (weight loss) (Zepbound) 2.5 mg (0.5 mL) subcut QWEEK Tobacco use date assessed: 01/27/25 Last assessed Fall Risk: 03/15/25 (Fell due to pain in back, no injury) Dental Screening Dental Screen Date: 03/15/25 Did you have a dental visit in the last 12 months?: No Did you have a dental problem in the last 6 months where you did not have access to dental care?: No HPI Lump on left shoulder, painful HPI Details Patient noticed a lump on left shoulder, painful to touch, no known injury Onset 03/12/25 Location Left Shoulder HPI Comments History of Present Illness Details The patient is a 69 year old female presenting for evaluation of a new painful lump on her left shoulder. She first noticed the lump on Thursday, and reports that it feels like it is getting bigger, or that the surrounding swelling is increasing. The pain radiates down her arm to the palm of her hand, which causes weakness in the hand. She has tried Tylenol and warm compresses for the pain but has not applied any creams. This is the first time she has experienced this issue. She visited a clinic on Thursday where an x-ray was performed, which was negative for any bone involvement. The patient has a history of hypertension and is prescribed losartan 50 mg. Her blood pressure today was 168/82 mmHg, which she stated is a good reading for her, as it has been as high as 202 in the past. She denies any history of kidney problems or intolerance to her medication. She has a family history of her son passing away from a stroke due to undiagnosed high blood pressure. PFSH Medical History Polio Surgical History Hx of cholecystectomy S/P NANCY (total abdominal hysterectomy) Hx of tonsillectomy History of appendectomy History of temporal artery biopsy History of lumbar surgery History of bladder surgery Family History (Updated 01/27/25 @ 15:03 by Tamiko Solis MD) Father Pancreatic cancer Myocardial infarct Daughter Cervical cancer Mother Myocardial infarct Other Stomach cancer Stroke Social History (Updated 01/27/25 @ 15:03 by Tamiko Solis MD) Housing: House Alcohol intake: never Patient Tobacco Use Status: Never used Tobacco e-Cigarette/Vaping Use: Never Used Second Hand Smoke Exposure: Yes (Grew up with parents who smoked) service: No Current occupational status: employed Current occupational exposures/hazards: No Cognitive needs: No Hearing needs: No Vision needs: Yes Questionnaire Thrive Questionnaire Date Thrive assessed: 09/13/24 I am a: Patient What is your living situation today?: I have a steady place to live Within the past 12 months, did the food you bought not last and you didn't have the money to get more?: Sometimes True Within the past 12 months, did you worry whether your food would run out before you got money to buy more?: I choose not to answer this question Do you have trouble paying for medicines?: No Do you have trouble getting transportation to medical appointments?: No Do you have trouble paying your heating and electricity bill?: No Do you have trouble taking care of your child, family member or friend?: No Do you have trouble with day-to-day activities such as bathing, preparing meals, shopping, managing finances, etc.?: No Are you currently unemployed and looking for a job?: No Are you interested in more education?: No Please select the resources that you would like help with: None Currently or been in a relationship where the following occur: No concerns reported THRIVE Score: 1 JESSICA-7 AMB Questionnaire JESSICA-7 Date JESSICA - 7 assessed: 01/27/25 Source: Developed by Drs. Camlio Mahoney, Beti Castro, Marc Vasquez and colleagues, with an educational georgi from [employer]. Review of Systems Const Details: As per HPI. Physical exam (Primary Care) Vital Signs: Last Vital Signs Temp 97.3 F 03/15/25 10:43 Pulse 62 03/15/25 10:43 Resp 14 03/15/25 10:43 BP 168/82 H 03/15/25 10:43 BMI result Body Mass Index 34.4 Tobacco/Smoking Status: Tobacco use Status Tobacco use date assessed 01/27/25 03/15/25 10:41 Patient Tobacco Use Status Never used Tobacco 03/15/25 10:41 e-Cigarette/Vaping Use Never Used 03/15/25 10:41 Thrive Assessment: Date of Thrive Assessment Date Thrive assessed 09/13/24 03/15/25 10:41 Currently or been in a relationship where the following occur: No concerns reported Const Other: Pertinent findings are in BOLD GENERAL APPEARANCE NAD, activity normal for age, well developed/ well nourished, no cyanosis, pallor, or diaphoresis. EYES lids/conjunctiva normal. EARS/NOSE/THROAT Mucous membranes moist, nares normal, lips/teeth normal uvula midline without oral pharyngeal erythema, exudate or swelling TMs normal bilaterally. No lymphangitis/lymphedema. HEAD/NECK normocephalic atraumatic, no facial trauma, neck is supple. RESPIRATORY respiratory effort normal, speaks in full sentences, no tripod position, no accessory muscle use. Lungs clear to auscultation without rhonchi, wheezes, rales CARDIAC Regular rate and rhythm, no edema. ABDOMINAL Soft, ND/NT. No evidence of fluid wave. No pulsatile masses on exam, rebound tenderness, Leal sign or pain over Mcburney's point. MUSCLES/EXTREMITIES No abnormal range of motion, no swelling. SKIN Warm, pink and dry. No rashes, dermatoses, petechiae or lesions. Left shoulder lump tendr to palpation. NEUROLOGICAL Speech is clear and appropriate. Normal level of consciousness. Gait and coordination are normal. 5/5 strength in all extremities. PSYCH Normal mood and affect. Judgement/competence is appropriate Coding Level of Care Code Est Pt Level 3 (35048) Diagnoses Lump of skin R22.9 Hypertension I10 Time Spent (min) 20 Assessment & Plan Assessment & Plan (1) Lump of skin: Code(s): R22.9 - Localized swelling, mass and lump, unspecified Category: Medical Plan: - The patient presents with a new, painful, enlarging lump on her left shoulder, possibly a cyst or abscess. - Prescribed doxycycline 100 mg twice daily for 7 days. - Prescribed a topical antibiotic cream. - Ordering an ultrasound of the left shoulder. - Placing a referral to general surgery, with a request to expedite the appointment due to her symptoms affecting work. - Advised the patient that she can use NSAIDs such as ibuprofen for pain. - Scheduled a follow-up appointment in two weeks to reassess. (2) Hypertension: Code(s): I10 - Essential (primary) hypertension Category: Medical Plan: - The patient's blood pressure is elevated at 168/82 mmHg on losartan 50 mg. - Increasing the dose of losartan to 100 mg. - The patient will continue to follow up with Dr. Solis for her hypertension lucero jones, with her next visit scheduled for April. Plan I discussed with the patient that her new, painful shoulder lump is likely a cyst or abscess that may require drainage. I explained the plan to start oral and topical antibiotics, obtain an ultrasound, and refer her to a surgeon. I noted that seeing the surgeon is the priority, and my staff will attempt to expedite the appointment given the severity of her pain and its impact on her work. We also addressed her elevated blood pressure reading of 168/82 mmHg. I recommended increasing her losartan dose from 50 mg to 100 mg and educated her on the importance of managing hypertension, referring to it as a silent killer . For pain management, I advised that she can use NSAIDs like ibuprofen, which may be more effective than Tylenol. A follow-up visit was scheduled in two weeks for reassessment, which she may cancel if the shoulder issue resolves with the surgeon. Orders: Orders US soft tissue chest Today R22.9 - Localized swelling, mass and lump, unspecified Referrals General Surgery Referral R22.9 - Localized swelling, mass and lump, unspecified Medications: New doxycycline hyclate 100 mg PO BID 14 caps 0RF muetbbgq-jkhzsgwjyYh-lysdrigfF 3.5mg-400 unit- 5,000 unit/gram (Triple Antibiotic) 1 appl topical BID 2,044.8 grams 3RF Changed From losartan 50 mg PO DAILY 90 tabs 1RF I10 - Essential (primary) hypertension To losartan 100 mg (2 x 50 mg) PO DAILY 90 tabs 1RF I10 - Essential (primary) hypertension
[2025-03-15 10:43] VITALS: BP 168/82; PULSE 62; RESP 14; TEMP 36.3; BMI 34.4
--- OUTSIDE RECORDS SUMMARY | 2025-03-15 12:55 | XMS_ITS | Clinical Summary ---
Author Organization [facility] Address [address] [place] [address] Phone Care Team Providers Care Sewage Plant Supervisor Name Role Phone Kristie Sarabia PRINTER APPRENTICE Primary Care Provider [phone]- [phone] Allergies Active Allergy Reactions Criticality Noted Date [...] Date Site/Laterality Comments OTHER SURGICAL HISTORY PROCEDURE: DE TONSILLECTOMY PRIMARY/SECONDARY AGE 12/> PARTIAL HYSTERECTOMY PROCEDURE: DE SUPRACERVICAL ABDL HYSTER W/WO RMVL TUBE OVARY HERNIA REPAIR PROCEDURE: DE REPAIR FIRST ABDOMINAL WALL HERNIA APPENDECTOMY PROCEDURE: DE APPENDECTOMY HYSTERECTOMY PROCEDURE: DE VAGINAL HYSTERECTOMY UTERUS 250 GM/< CHOLECYSTECTOMY PROCEDURE: DE LAPAROSCOPY SURG CHOLECYSTECTOMY COLONOSCOPY 03/11/2006 PROCEDURE: DE COLONOSCOPY FLX DX W/COLLJ SPEC WHEN PFRMD; COMMENT: Negative CARPAL TUNNEL RELEASE PROCEDURE: HISTORICAL CARPAL TUNNEL REL BLADDER SURGERY PROCEDURE: HISTORICAL BLADDER SURGERY KNEE SURGERY PROCEDURE: HISTORICAL KNEE SURGERY ESOPHAGOGASTRODUODENOSCOPY 02/21/2014 PROCEDURE: DE ESOPHAGOGASTRODUODENOSCOPY TRANSORAL DIAGNOSTIC; COMMENT: Schatzki's ring, hiatal hernia; Terrazas's esophagus w/chronic inflammation ESOPHAGOGASTRODUODENOSCOPY 04/19/2013 PROCEDURE: DE ESOPHAGOGASTRODUODENOSCOPY TRANSORAL DIAGNOSTIC; COMMENT: Terrazas's mucosa; no dysplasia ESOPHAGOGASTRODUODENOSCOPY 02/03/2012 PROCEDURE: DE ESOPHAGOGASTRODUODENOSCOPY TRANSORAL DIAGNOSTIC; COMMENT: Schatzki's ring (dilation), hiatal hernia Medical History Medical History Date Comments Cervicalgia 340694 DX:Cervicalgia Celiac disease 449602 DX:Celiac diseas e Essential hypertension, benign 185822 D X:Essential hypertension, benign FREDY (obstructive sleep apnea) 12/06/2010 DX :FREDY (obstructive sleep apnea) Terrazas esophagus 03/04/2005 DX:[place]as eso phagus Asthma 11/29/2004 DX:Asthma GERD (gastroesophageal reflux disease) 12/06/2010 DX:GERD (gastroesophageal reflux disease) Other specified disorders of liver 09/20/2008 DX:Other specified disorders of liver; COMMENT: 6-mm lesion on CT at [facility] [place]. Ultrasound recommended in 04/2009 [...] Orientation Straight 07/08/2024 1: 27 PM EDT Last Filed Vital Signs Vital Sign Reading [...] mmol/L LAB CHEMISTRY METHOD 07/10/2024 8:[address] [facility] Potassium 4.5 3.5 - 5.5 mmol/L LAB CHEMISTRY METHOD 07/10/2024 8:[address] [facility] Comment:Hemolysis present Chloride 111(H) 96 - 110 mmol/L LAB CHEMISTRY METHOD 07/10/2024 8:[address] [facility] CO2 22 21 - 32 mmol/L LAB CHEMISTRY METHOD 07/10/2024 8:[address] [facility] Anion Gap 6 3 - 11 LAB CHEMISTRY METHOD 07/10/2024 8:23 AM EDT [facility] Glucose 101(H) 70 - 100 mg/dL LAB CHEMISTRY METHOD 07/10/2024 8:23 AM T [facility] BUN 26(H) 5 - 25 mg/dL LAB CHEMISTRY METHOD 07/10/2024 8:[address] [facility] Creatinine 0.72 0.50 - 1.10 mg/dL LAB CHEMISTRY METHOD 07/10/2024 8:23 AM EDT [facility] eGFR 91 >=60 mL/min/1. 73m2 LAB CHEMISTRY METHOD 07/10/2024 8:23 AM T [facility] Comment:Calculation based on the Chronic Kidney Disease Epidemiology Collaboration (CKD-EPI) equation refit without adjustment for race. BUN/Creatinine Ratio 36.1 LAB CHEMISTRY METHOD 07/10/2024 8:[address] [facility] Calcium 9.2 8.5 - 10.5 mg/dL LAB CHEMISTRY METHOD 07/10/2024 8:[address] [facility] Blood Venous blood specimen / Unknown Venipuncture / Unknown 07/10/2024 5:46 AM EDT 07/10/2024 7:16 AM EDT us Yoav Hernandez MD LAB BLOOD ORDERABLES F inal Result [facility] [address] [place] [address], * (ABNORMAL) Lipid panel with reflex to direct LDL (07/09/2024 4:42 AM EDT) Cholesterol 222(H) 0 - 200 mg/dL LAB CHEMISTRY METHOD 07/09/2024 6:03 AM T [facility] Triglycerides 183(H) 0 - 150 mg/dL LAB CHEMISTRY METHOD 07/09/2024 6:03 AM EDT [facility] HDL 56 >=40 mg/dL LAB CHEMISTRY METHOD 07/09/2024 6:03 AM EDT [facility] LDL Calculated 129(H) 0 - 100 mg/dL LAB CHEMISTRY METHOD 07/09/2024 6:03 AM EDT [facility] VLDL Cholesterol Bert 36.6 mg/dL LAB CHEMISTRY METHOD 07/09/2024 6:03 AM EDT [facility] Non HDL Chol. (LDL+VLDL) 166(H) <145 mg/dL LAB CHEMISTRY METHOD 07/09/2024 6:03 AM EDT [facility] Chol/HDL Ratio 4.0 0.0 - 4.4 LAB CHEMISTRY METHOD 07/09/2024 6:03 AM EDT [facility] Blood Venous blood specimen / Unknown Venipuncture / Unknown 07/09/2024 4:42 AM EDT 07/09/2024 5:30 AM EDT us Johanna HANSEN LAB BLOOD ORDERABLES Final Re sult [facility] [address] [place] [address], from Last 3 Months or Most Recently Relevant to Health Maintenance Insurance MEDICARE [facility] [address] [place] [address] Advance Directives Documents on File Type Date Recorded 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 Care Teams Sewage Plant Supervisor Relationship Specialty Start Date End Date Kristie Sarabia NP [address] [place] [address] [address] [place], [place] PCP - General Internal Medicine 06/07/18
--- OUTSIDE RECORDS SUMMARY | 2025-03-15 12:55 | XMS_ITS | Clinical Summary ---
Author Organization [employer] [facility] Prior to 08/27/[address] [place] [address] Care Team Providers Care Coating Mixer Name Role Phone [place] Kristie Fischer APRN Primary Care Provider + Social History [...] age to complete this topic Care Teams Coating Mixer Relationship Specialty Start Date End Date Kristie Sarabia, INSEAM TRIMMING MACHINE OPERATOR [address] [facility] [address] [facility] [place] [address] PCP - General Nurse Practitioner 05/06/17
== END 2025-03-15 11:05 | disposition home or self-care (01) ==
LOC: HO.HMCH 10:26
PROVIDERS: PCP Internal Medicine; Visit Provider Internal Medicine
DX: R22.9 Localized swelling, mass and lump, unspecified (principal); I10 Essential (primary) hypertension

== ENCOUNTER 2025-03-15 11:38 | Outpatient (REF) | payer MEDICARE, OTHER, SELFPAY ==
--- NOTE | ~2025-03-15 | US_ITS ---
CLINICAL HISTORY: R22.9 - Localized swelling, mass and lump, unspecified Targeted ultrasound of left shoulder mass Comparison: None provided Technique: Targeted sonographic imaging, including color Doppler imaging to the area of interest of the left shoulder was performed by the fnps. Multiple pharmacy sales representative static and cine images were saved for review. Findings: In the subcutaneous soft tissue, there is well-defined complex cyst with intracystic lacy hypoechogenicity, 8 x 8 x 9 mm, surrounding echogenic soft tissue with mild hyperemia. Impression: Subcutaneous complex cyst with echogenic and mildly hyperemic surrounding soft tissue, probably resolving hematoma with soft tissue inflammation, infected fluid collection/abscess is felt to be less likely, please correlate clinically, recommend follow-up 1-2 month. This document has been electronically signed by: Margaux Munoz MD on 03/15/2025 14:25:40
== END 2025-03-15 11:39 | disposition home or self-care (01) ==
LOC: HO.US 11:38
PROVIDERS: PCP Internal Medicine; Visit Provider Internal Medicine
DX: R22.32 Localized swelling, mass and lump, left upper limb (principal)
CPT/HCPCS: 76882; 99212

== ENCOUNTER → 2025-03-15 11:46 | Outpatient (BNV) | payer MEDICARE, OTHER, SELFPAY | PROVIDERS: PCP Internal Medicine; Visit Provider Radiology Diagnostic Radiology | DX: M85.612 Other cyst of bone, left shoulder (principal) | CPT/HCPCS: 76882 ==

== ENCOUNTER 2025-03-17 10:47 | Outpatient (AMB) | payer MEDICARE, OTHER, SELFPAY ==
[2025-03-17 11:05] VITALS: BP 188/90; PULSE 100; BMI 35.5
--- NOTE | 2025-03-17 11:05 | MHC.OFFVIS ---
Vital Signs 03/17/25 11:05 Height 5 ft 1 in Weight 188 lb BMI 35.5 BP 188/90 H Blood Pressure Location Lt brachial Position Sitting Pulse 100 Intake Visit Reasons: Localized swelling, mass and lump, unspecified Intake Note: Patient referred by Dr. Allan Funez for evaluation of lump on left shoulder. Still on Doxycycline 100mg X7d course. Patient c/o: painful to touch, pain that spreads down to hand. Started Thursday. No prior trauma to area. Imaging: Lt upper extremity US~ 03-15-2025 Quarrying Manager Required: No Accompanied by: friend Magda Allergies nifedipine (From PROCARDIA) Allergy (Severe, Verified 03/15/25 10:38) HIVES Procardia Allergy (Unknown, Uncoded 09/13/24 13:51) tachycardia, flushing Medication List - Last Reconciled 03/17/25 by Cdoy Mohamud MD acetaminophen 1,000 mg PO Q6H PRN albuterol sulfate 90 mcg/actuation 2 puffs inhalation Q6H PRN atorvastatin 40 mg PO DAILY doxycycline hyclate 100 mg PO BID losartan 100 mg (2 x 50 mg) PO DAILY metoprolol succinate ER 25 mg PO DAILY ozldkhfp-rcmxsgathNf-cijvbfgpB 3.5mg-400 unit- 5,000 unit/gram (Triple Antibiotic) 1 appl topical BID pantoprazole 40 mg PO DAILY HPI Comments Details: 69-year-old lady with a history of a ?lump? on the apex of her left shoulder. She reports that she woke up with it one morning and she finds it painful. She goes on to say that pain associated with a lump can radiate upper neck as well as down her left arm. She denies any history of trauma or instrumentation to the region. Ultrasound of the area was indicative of a small simple cyst, possibly a hematoma. She is taking antibiotics for the problem. She feels it might slowly beginning better but ?it really bothers me that it is there?. She desires excision. [facility] Medical History Polio Surgical History Hx of cholecystectomy S/P NANCY (total abdominal hysterectomy) Hx of tonsillectomy History of appendectomy History of temporal artery biopsy History of lumbar surgery History of bladder surgery Family History Father Pancreatic cancer Myocardial infarct Daughter Cervical cancer Mother Myocardial infarct Other Stomach cancer Stroke Social History Housing: House Alcohol intake: never Patient Tobacco Use Status: Never used Tobacco e-Cigarette/Vaping Use: Never Used Second Hand Smoke Exposure: Yes (Grew up with parents who smoked) service: No Current occupational status: employed Current occupational exposures/hazards: No Cognitive needs: No Hearing needs: No Vision needs: Yes Review of Systems Const All systems reviewed & are unremarkable except as noted in HPI and below Physical Exam Vital Signs: Last Vital Signs Pulse 100 03/17/25 11:05 BP 188/90 H 03/17/25 11:05 BMI result Body Mass Index 35.5 Const General: cooperative, healthy appearing and comfortable Orientation/consciousness: oriented to person, oriented to place and oriented to time HEENT Head: Yes normal to inspection Eyes General: appearance normal, both eyes and all related structures Pupils: Equal, round and reactive pupils present EOM: EOMs intact bilaterally Neck Neck: Yes normal visual inspection Neck images:  1. Subtle 1-2 cm cystic structure. Mobile. Somewhat tender. No corresponding skin change. Chest Chest palpation & inspection: normal inspection of the chest Resp Effort & Inspection: normal respiratory effort and able to speak in complete sentences Cardio Rate: regular rate Rhythm: regular rhythm GI Inspection: Yes normal to inspection Skin General skin exam: no rashes or lesions noted Neuro General: oriented to person, oriented to place and oriented to time Cranial nerves: Yes CN's II-XII intact bilaterally and Yes Equal, round and reactive pupils present Extrem General: Yes normal to inspection Assessment & Plan Assessment & Plan (1) Sebaceous cyst: Code(s): L72.3 - Sebaceous cyst Category: Medical Plan: I told the patient I felt excision was reasonable. I reviewed with her the nature of excisional biopsy of her left shoulder cyst. Also reviewed with her the risks are involved. These include but are not limited to bleeding, infection, pain, scarring in the possibility that excision makes her feel actually worse. She indicated that she understood. She told me that she consider options. She told me that she understood and accepted the risks of surgery and still wished to proceed with operative intervention. Coding Level of Care Code New Pt Level 3 (32797) Diagnoses Sebaceous cyst L72.3 Time Spent (min) 30 Comment Record review patient visit and coordination of care time
--- OUTSIDE RECORDS SUMMARY | 2025-03-17 12:36 | XMS_ITS | Clinical Summary ---
Author Organization [employer] [facility] Prior to 08/27/[address] [place] [address] Care Team Providers Care Rocket Motor Tester Name Role Phone Cornell Kristie Fischer APRN [...] age to complete this topic Care Teams Rocket Motor Tester Relationship Specialty Start Date End Date Kristie Sarabia, WOOD DIE MAKER [address] [facility] [address] [facility] [place]un [id number] PCP - General Nurse Practitioner 05/06/17
--- OUTSIDE RECORDS SUMMARY | 2025-03-17 12:36 | XMS_ITS | Clinical Summary ---
Author Organization [facility] Address [address] [place] [address] Phone Care Team Providers Care Dementia Program Director Name Role Phone Kristie Sarabia AUTO HIKER Primary Care Provider [phone] Allergies Active Allergy Reactions Criticality Noted Date [...] Date Site/Laterality Comments OTHER SURGICAL HISTORY PROCEDURE: AZ TONSILLECTOMY PRIMARY/SECONDARY AGE 12/> PARTIAL HYSTERECTOMY PROCEDURE: [place] SUPRACERVICAL ABDL HYSTER W/WO RMVL TUBE OVARY HERNIA REPAIR PROCEDURE: AZ REPAIR FIRST ABDOMINAL WALL HERNIA APPENDECTOMY PROCEDURE: AZ APPENDECTOMY HYSTERECTOMY PROCEDURE: AZ VAGINAL HYSTERECTOMY UTERUS 250 GM/< CHOLECYSTECTOMY PROCEDURE: AZ LAPAROSCOPY SURG CHOLECYSTECTOMY COLONOSCOPY 03/11/2006 PROCEDURE: AZ COLONOSCOPY FLX DX W/COLLJ SPEC WHEN PFRMD; COMMENT: Negative CARPAL TUNNEL RELEASE PROCEDURE: HISTORICAL CARPAL TUNNEL REL BLADDER SURGERY PROCEDURE: HISTORICAL BLADDER SURGERY KNEE SURGERY PROCEDURE: HISTORICAL KNEE SURGERY ESOPHAGOGASTRODUODENOSCOPY 02/21/2014 PROCEDURE: AZ ESOPHAGOGASTRODUODENOSCOPY TRANSORAL DIAGNOSTIC; COMMENT: Schatzki's ring, hiatal hernia; Terrazas's esophagus w/chronic inflammation ESOPHAGOGASTRODUODENOSCOPY 04/19/2013 PROCEDURE: AZ ESOPHAGOGASTRODUODENOSCOPY TRANSORAL DIAGNOSTIC; COMMENT: Terrazas's mucosa; no dysplasia ESOPHAGOGASTRODUODENOSCOPY 02/03/2012 PROCEDURE: AZ ESOPHAGOGASTRODUODENOSCOPY TRANSORAL DIAGNOSTIC; COMMENT: Schatzki's ring (dilation), hiatal hernia Medical History Medical History Date Comments Cervicalgia [id number] DX:Cervicalgia Celiac disease 024045 DX:Celiac diseas e Essential hypertension, benign [id number] D X:Essential hypertension, benign FREDY (obstructive sleep apnea) 12/06/2010 DX :FREDY (obstructive sleep apnea) 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 Ultrasound recommended in 04/[address] Gant [...] mmol/L LAB CHEMISTRY METHOD 07/10/2024 8:23 AM [facility] Potassium 4.5 3.5 - 5.5 mmol/L LAB CHEMISTRY METHOD 07/10/2024 8:23 AM [facility] Comment:Hemolysis present Chloride 111(H) 96 - 110 mmol/L LAB CHEMISTRY METHOD 07/10/2024 8:23 AM [facility] CO2 22 21 - 32 mmol/L LAB CHEMISTRY METHOD 07/10/2024 8:23 AM [facility] Anion Gap 6 3 - 11 LAB CHEMISTRY METHOD 07/10/2024 8:[address] [facility] Glucose 101(H) 70 - 100 mg/dL LAB CHEMISTRY METHOD 07/10/2024 8:[address] [facility] BUN 26(H) 5 - 25 mg/dL LAB CHEMISTRY METHOD 07/10/2024 8:23 AM [facility] Creatinine 0.72 0.50 - 1.10 mg/dL LAB CHEMISTRY METHOD 07/10/2024 8:[address] [facility] eGFR 91 >=60 mL/min/1. 73m2 LAB CHEMISTRY METHOD 07/10/2024 8:[address] [facility] Comment:Calculation based on the Chronic Kidney Disease Epidemiology Collaboration (CKD-EPI) equation refit without adjustment for race. BUN/Creatinine Ratio 36.1 LAB CHEMISTRY METHOD 07/10/2024 8:23 AM [facility] Calcium 9.2 8.5 - 10.5 mg/dL LAB CHEMISTRY METHOD 07/10/2024 8:23 AM [facility] Blood Venous blood specimen / Unknown Venipuncture / Unknown 07/10/2024 5:46 AM EDT 07/10/2024 7:16 AM EDT us Yoav Hernandez MD LAB BLOOD ORDERABLES F inal Result [facility] [address] [place] [address], * (ABNORMAL) Lipid panel with reflex to direct LDL (07/09/2024 4:42 AM EDT) Cholesterol 222(H) 0 - 200 mg/dL LAB CHEMISTRY METHOD 07/09/2024 6:[address] [facility] Triglycerides 183(H) 0 - 150 mg/dL LAB CHEMISTRY METHOD 07/09/2024 6:[address] [facility] HDL 56 >=40 mg/dL LAB CHEMISTRY METHOD 07/09/2024 6:[address] [facility] LDL Calculated 129(H) 0 - 100 mg/dL LAB CHEMISTRY METHOD 07/09/2024 6:[address] [facility] VLDL Cholesterol Ebrt 36.6 mg/dL LAB CHEMISTRY METHOD 07/09/2024 6:[address] [facility] Non HDL Chol. (LDL+VLDL) 166(H) <145 mg/dL LAB CHEMISTRY METHOD 07/09/2024 6:[address] [facility] Chol/HDL Ratio 4.0 0.0 - 4.4 LAB CHEMISTRY METHOD 07/09/2024 6:[address] [facility] Blood Venous blood specimen / Unknown Venipuncture / Unknown 07/09/2024 4:42 AM EDT 07/09/2024 5:30 AM EDT us Johanna HANSEN LAB BLOOD ORDERABLES Final Re sult [facility] [address] [place] [address], from Last 3 Months or Most Recently Relevant to Health Maintenance Insurance MEDICARE [facility] [address] [place] [address] Advance Directives Documents on File Type Date Recorded Patient Resource Engineer Expl anation Health Care Decision (hx) 06/02/2014 [...] currently active code status orders. Care Teams Dementia Program Director Relationship Specialty Start Date End Date Kristie Sarabia NP [address] [place] [address] [address] [place], [place] PCP - General Internal Medicine 06/07/18
== END 2025-03-17 11:27 | disposition home or self-care (01) ==
LOC: HO.HGS 10:48
PROVIDERS: PCP Internal Medicine; Visit Provider Surgery
DX: L72.3 Sebaceous cyst (principal)
CPT/HCPCS: 99203

== ENCOUNTER → 2025-03-17 10:47 | Outpatient (BNVA) | payer MEDICARE, OTHER, SELFPAY | PROVIDERS: PCP Internal Medicine; Visit Provider Surgery | DX: R22.32 Localized swelling, mass and lump, left upper limb (principal); L72.3 Sebaceous cyst | CPT/HCPCS: 99202 ==

== ENCOUNTER 2025-03-29 10:59 | Outpatient (AMB) | payer MEDICARE, OTHER, SELFPAY ==
[2025-03-29 11:03] VITALS: BP 134/90; PULSE 102; TEMP 36.2; O2SAT 95; BMI 34.8
--- NOTE | 2025-03-29 11:03 | A.OFFPC_ITS ---
Vital Signs 03/29/25 11:03 Height 5 ft 1 in Weight 184 lb 4 oz BMI 34.8 BP 134/90 H Blood Pressure Location Lt brachial Position Sitting Pulse 102 H Pulse Source Pulse Oximeter Temp 97.1 F Temp Source Temporal Artery Scan Pulse Oximetry (%) 95 Oxygen Delivery Method Room Air Intake Visit Reasons: Lump Allergies nifedipine (From PROCARDIA) Allergy (Severe, Verified 03/29/25 11:05) HIVES Procardia Allergy (Unknown, Uncoded 03/29/25 11:05) tachycardia, flushing Medication List - Last Reconciled 03/29/25 by Miguel Angel Funez MD acetaminophen 1,000 mg PO Q6H PRN albuterol sulfate 90 mcg/actuation 2 puffs inhalation Q6H PRN atorvastatin 40 mg PO DAILY losartan 100 mg (2 x 50 mg) PO DAILY metoprolol succinate ER 25 mg PO DAILY caanxhzt-bukgasyglYe-wefqfpmnH 3.5mg-400 unit- 5,000 unit/gram (Triple Antibiotic) 1 appl topical BID pantoprazole 40 mg PO DAILY Tobacco use date assessed: 03/29/25 Fall risk assessment: No Falls in past year Dental Screening Dental Screen Date: 03/29/25 Did you have a dental visit in the last 12 months?: No Did you have a dental problem in the last 6 months where you did not have access to dental care?: No Was dental information given to patient?: No HPI HPI Comments History of Present Illness Details The patient is a 69 year old female presenting for follow-up of a left shoulder lump and evaluation of low back pain. The patient has had a lump on her left shoulder for over three weeks. Initial treatment with Tylenol and warm compresses was not effective. An x-ray was negative, and an ultrasound suggested a hematoma, which was thought to be less likely an infection. She was treated with doxycycline, which she completed. She was referred to general surgery and chose not to proceed with any procedure. The patient reports the lump is improving and feels it has decreased in size. The patient also reports severe low back pain, which she believes may be related to another disc issue. The pain is located across her lower back and radiates down both legs, which is different from her prior experience with sciatica that affected only one leg. The pain is worse in the morning, making it difficult to move, and is exacerbated by coughing to the point that it can drop her to her knees. She has a history of prior back surgery with rods. She has tried Tylenol for the pain. PFSH Medical History Polio Surgical History Hx of cholecystectomy S/P NANCY (total abdominal hysterectomy) Hx of tonsillectomy History of appendectomy History of temporal artery biopsy History of lumbar surgery History of bladder surgery Family History Father Pancreatic cancer Myocardial infarct Daughter Cervical cancer Mother Myocardial infarct Other Stomach cancer Stroke Social History Housing: House Alcohol intake: never Patient Tobacco Use Status: Never used Tobacco e-Cigarette/Vaping Use: Never Used Second Hand Smoke Exposure: Yes (Grew up with parents who smoked) service: No Current occupational status: employed Current occupational exposures/hazards: No Cognitive needs: No Hearing needs: No Vision needs: Yes Questionnaire PHQ-9 Over the last 2 weeks, how often have you been bothered by any of the following problems? 1. Little interest or pleasure in doing things: several days 2. Feeling down, depressed, or hopeless: several days 3. Trouble falling or staying asleep, or sleeping too much: not at all 4. Feeling tired or having little energy: not at all 5. Poor appetite or overeating: not at all 6. Feeling bad about yourself - or that you are a failure or have let yourself or your family down: not at all 7. Trouble concentrating on things, such as reading the newspaper or watching television: not at all 8. Moving or speaking so slowly that other people could have noticed. Or the opposite - being so fidgety or restless that you have been moving around a lot more than usual: not at all 9. Thoughts that you would be better off or of hurting yourself in some way: not at all Total score: 2 Source: Developed by Drs. Camilo Mahoney, Beti Castro, Marc Vasquez and colleagues, with an educational georgi from [employer]. Thrive Questionnaire Date Thrive assessed: 09/13/24 I am a: Patient What is your living situation today?: I have a steady place to live Within the past 12 months, did the food you bought not last and you didn't have the money to get more?: Sometimes True Within the past 12 months, did you worry whether your food would run out before you got money to buy more?: I choose not to answer this question Do you have trouble paying for medicines?: No Do you have trouble getting transportation to medical appointments?: No Do you have trouble paying your heating and electricity bill?: No Do you have trouble taking care of your child, family member or friend?: No Do you have trouble with day-to-day activities such as bathing, preparing meals, shopping, managing finances, etc.?: No Are you currently unemployed and looking for a job?: No Are you interested in more education?: No Currently or been in a relationship where the following occur: No concerns reported THRIVE Score: 1 AUDIT C Alcohol Use Questionnaire (AUDIT-C) 1. How often do you have a drink containing alcohol?: Never 3. How often do you have six or more drinks on one occasion?: Never Total Score: 0 JESSICA-7 AMB Questionnaire JESSICA-7 Date JESSICA - 7 assessed: 01/27/25 Feeling nervous, anxious, or on edge: 1 = Several days Not being able to stop or control worryin = Several days Worrying too much about different things: 1 = Several days Trouble relaxin = Not at all Being so restless that it is hard to sit still: 0 = Not at all Becoming easily annoyed or irritable: 0 = Not at all Feeling afraid as if something awful might happen: 1 = Several days Total JESSICA-7 score (0-4 normal; 5-9 mild; 10-14 moderate; 15-21 severe): 4 Source: Developed by Drs. Camilo Mahoney, Beti Castro, Marc Vasquez and colleagues, with an educational georgi from [employer]. Review of Systems Const Details: As per HPI. Physical exam (Primary Care) Vital Signs: Last Vital Signs Temp 97.1 F 03/29/25 11:03 Pulse 102 H 03/29/25 11:03 BP 134/90 H 03/29/25 11:03 Pulse Ox 95 03/29/25 11:03 Oxygen Delivery Method Room Air 03/29/25 11:03 BMI result Body Mass Index 34.8 Tobacco/Smoking Status: Tobacco use Status Tobacco use date assessed 03/29/25 03/29/25 11:06 Patient Tobacco Use Status Never used Tobacco 03/29/25 11:06 e-Cigarette/Vaping Use Never Used 03/29/25 11:06 PHQ-9: PHQ-9 Score PHQ-9: Total score 2 03/29/25 11:06 Thrive Assessment: Date of Thrive Assessment Date Thrive assessed 09/13/24 03/29/25 11:06 Currently or been in a relationship where the following occur: No concerns reported Const Other: Pertinent findings are in BOLD GENERAL APPEARANCE NAD, activity normal for age, well developed/ well nourished, no cyanosis, pallor, or diaphoresis. EYES lids/conjunctiva normal. EARS/NOSE/THROAT Mucous membranes moist, nares normal, lips/teeth normal uvula midline without oral pharyngeal erythema, exudate or swelling TMs normal bilaterally. No lymphangitis/lymphedema. HEAD/NECK normocephalic atraumatic, no facial trauma, neck is supple. RESPIRATORY respiratory effort normal, speaks in full sentences, no tripod position, no accessory muscle use. Lungs clear to auscultation without rhonchi, wheezes, rales CARDIAC Regular rate and rhythm, no edema. ABDOMINAL Soft, ND/NT. No evidence of fluid wave. No pulsatile masses on exam, rebound tenderness, Leal sign or pain over Mcburney's point. MUSCLES/EXTREMITIES No abnormal range of motion, no swelling. SKIN Warm, pink and dry. No rashes, dermatoses, petechiae or lesions. Left shoulder lump improved in size. NEUROLOGICAL Speech is clear and appropriate. Normal level of consciousness. Gait and coordination are normal. 5/5 strength in all extremities. PSYCH Normal mood and affect. Judgement/competence is appropriate Coding Level of Care Code Est Pt Level 4 (63324) Diagnoses Low back pain M54.50 Lump of skin R22.9 Time Spent (min) 30 Assessment & Plan Assessment & Plan (1) Low back pain: Code(s): M54.50 - Low back pain, unspecified Category: Medical Plan: - A lidocaine patch was prescribed for pain management. - A referral to physical therapy will be placed. - The patient prefers to see an orthopedics specialist but understands the need to try physical therapy first. - Advised to follow up with her primary care provider, Dr. Solisif the pain per sists despite these interventions to discuss further evaluation, including a potential orthopedic referral. (2) Lump of skin: Code(s): R22.9 - Localized swelling, mass and lump, unspecified Category: Medical Plan: - As the lump is spontaneously improving, the patient has elected for conservative management. - The plan is to continue observation and allow it more time to resolve. Plan Regarding her left shoulder lump, we discussed that it appears to be a hematoma which is improving on its own, and she agreed with a plan of watchful waiting. For her low back pain, I proposed a trial of a lidocaine patch and a referral for physical therapy, explaining that PT is often required before an orthopedic consultation. She was agreeable to this approach. I advised her to follow up with her primary care provider, Dr. Solis, to discuss the back pain if it doesn't improve, at which point he can assess the need for further steps like a specialist referral. Orders: Orders PT Evaluation and Treatment Today M54.50 - Low back pain, unspecified Medications: New lidocaine 4% (Aspercreme (lidocaine)) 1 patch topical DAILY PRN 10 ea 0RF pain
--- OUTSIDE RECORDS SUMMARY | 2025-03-29 12:36 | XMS_ITS | Clinical Summary ---
Author Organization [employer] [facility] Prior to 08/27/[address] [place] [address] Care Team Providers Care Foreman/Project Manager Name Role Phone Cornell Kristie Fischer APRN [...] age to complete this topic Care Teams Foreman/Project Manager Relationship Specialty Start Date End Date Kristie Sarabia, RETRIEVAL SPECIALIST [address] [facility] [address] [facility] [place] [address] PCP - General Nurse Practitioner 05/06/17
--- OUTSIDE RECORDS SUMMARY | 2025-03-29 12:36 | XMS_ITS | Clinical Summary ---
Author Organization [facility] Address [address] [place] [address] Phone Care Team Providers Care Field Marketing Lead Name Role Phone Kristie Sarabia AGRONOMY MANAGER Primary Care Provider [phone] Allergies Active Allergy Reactions Criticality Noted Date [...] Date Site/Laterality Comments OTHER SURGICAL HISTORY PROCEDURE: AR TONSILLECTOMY PRIMARY/SECONDARY AGE 12/> PARTIAL HYSTERECTOMY PROCEDURE: AR SUPRACERVICAL ABDL HYSTER W/WO RMVL TUBE OVARY HERNIA REPAIR PROCEDURE: AR REPAIR FIRST ABDOMINAL WALL HERNIA APPENDECTOMY PROCEDURE: AR APPENDECTOMY HYSTERECTOMY PROCEDURE: AR VAGINAL HYSTERECTOMY UTERUS 250 GM/< CHOLECYSTECTOMY PROCEDURE: AR LAPAROSCOPY SURG CHOLECYSTECTOMY COLONOSCOPY 03/11/2006 PROCEDURE: AR COLONOSCOPY FLX DX W/COLLJ SPEC WHEN PFRMD; COMMENT: Negative CARPAL TUNNEL RELEASE PROCEDURE: HISTORICAL CARPAL TUNNEL REL BLADDER SURGERY PROCEDURE: HISTORICAL BLADDER SURGERY KNEE SURGERY PROCEDURE: HISTORICAL KNEE SURGERY ESOPHAGOGASTRODUODENOSCOPY 02/21/2014 PROCEDURE: AR ESOPHAGOGASTRODUODENOSCOPY TRANSORAL DIAGNOSTIC; COMMENT: Schatzki's ring, hiatal hernia; Terrazas's esophagus w/chronic inflammation ESOPHAGOGASTRODUODENOSCOPY 04/19/2013 PROCEDURE: AR ESOPHAGOGASTRODUODENOSCOPY TRANSORAL DIAGNOSTIC; COMMENT: [place]razas's mucosa; no dysplasia ESOPHAGOGASTRODUODENOSCOPY 02/03/2012 PROCEDURE: AR ESOPHAGOGASTRODUODENOSCOPY TRANSORAL DIAGNOSTIC; COMMENT: Schatzki's ring (dilation), hiatal hernia Medical History Medical History Date Comments Cervicalgia 775371 DX:Cervicalgia Celiac disease 909269 DX:Celiac diseas e Essential hypertension, benign [id number] D X:Essential hypertension, benign FREDY (obstructive sleep apnea) 12/06/2010 DX :FREDY (obstructive sleep apnea) [place] esophagus 03/04/2005 DX:[place] eso phagus Asthma 11/29/2004 DX:Asthma GERD (gastroesophageal reflux disease) 12/06/2010 DX:GERD (gastroesophageal reflux disease) Other specified disorders of liver 09/20/2008 DX:Other specified disorders of liver; COMMENT: 6-mm lesion on CT at [facility]. Ultrasound recommended in 04/[address] [...] mmol/L LAB CHEMISTRY METHOD 07/10/2024 8:23 AM [facility] Potassium 4.5 3.5 - 5.5 mmol/L LAB CHEMISTRY METHOD 07/10/2024 8:23 AM [facility] Comment:Hemolysis present Chloride 111(H) 96 - 110 mmol/L LAB CHEMISTRY METHOD 07/10/2024 8:23 AM [facility] CO2 22 21 - 32 mmol/L LAB CHEMISTRY METHOD 07/10/2024 8:23 AM [facility] Anion Gap 6 3 - 11 LAB CHEMISTRY METHOD 07/10/2024 8:23 AM EDT [facility] Glucose 101(H) 70 - 100 mg/dL LAB CHEMISTRY METHOD 07/10/2024 8:23 AM T [facility] BUN 26(H) 5 - 25 mg/dL LAB CHEMISTRY METHOD 07/10/2024 8:23 AM [facility] Creatinine 0.72 0.50 - 1.10 mg/dL LAB CHEMISTRY METHOD 07/10/2024 8:23 AM EDT [facility] eGFR 91 >=60 mL/min/1. 73m2 LAB CHEMISTRY METHOD 07/10/2024 8:23 AM T [facility] Comment:Calculation based on the Chronic Kidney Disease Epidemiology Collaboration (CKD-EPI) equation refit without adjustment for race. BUN/Creatinine Ratio 36.1 LAB CHEMISTRY METHOD 07/10/2024 8:23 AM [facility] Calcium 9.2 8.5 - 10.5 mg/dL LAB CHEMISTRY METHOD 07/10/2024 8:23 AM [facility] Blood Venous blood specimen / Unknown Venipuncture / Unknown 07/10/2024 5:46 AM EDT 07/10/2024 7:16 AM EDT us Yoav Hernandez MD LAB BLOOD ORDERABLES F inal Result [facility] [address] [place] [address], * (ABNORMAL) Lipid panel with reflex to direct LDL (07/09/2024 4:42 AM EDT) Cholesterol 222(H) 0 - 200 mg/dL LAB CHEMISTRY METHOD 07/09/2024 6:03 AM T [facility] Triglycerides 183(H) 0 - 150 mg/dL LAB CHEMISTRY METHOD 07/09/2024 6:03 AM EDT [facility] HDL 56 >=40 mg/dL LAB CHEMISTRY METHOD 07/09/2024 6:03 AM EDT [facility] LDL Calculated 129(H) 0 - 100 mg/dL LAB CHEMISTRY METHOD 07/09/2024 6:03 AM EDT [facility] VLDL Cholesterol Bert 36.6 mg/dL LAB CHEMISTRY METHOD 07/09/2024 6:03 AM EDT [facility] Non HDL Chol. (LDL+VLDL) 166(H) <145 mg/dL LAB CHEMISTRY METHOD 07/09/2024 6:03 AM EDT [facility] Chol/HDL Ratio 4.0 0.0 - 4.4 LAB CHEMISTRY METHOD 07/09/2024 6:03 AM EDT [facility] Blood Venous blood specimen / Unknown Venipuncture / Unknown 07/09/2024 4:42 AM EDT 07/09/2024 5:30 AM EDT us Johanna HANSEN LAB BLOOD ORDERABLES Final Re sult [facility] [address] [place] [address], from Last 3 Months or Most Recently Relevant to Health Maintenance Insurance MEDICARE [facility] [address] [place] [address] Advance Directives Documents on File Type Date Recorded Patient Design Director Expl anation Health Care Decision (hx) 06/02/2014 [...] currently active code status orders. Care Teams Field Marketing Lead Relationship Specialty Start Date End Date Kristie Sarabia NP [address] [place] [address] [address], [place] PCP - General Internal Medicine 06/07/18
== END 2025-03-29 11:56 | disposition home or self-care (01) ==
LOC: HO.HMCH 11:00
PROVIDERS: PCP Internal Medicine; Visit Provider Internal Medicine
DX: M54.50 Low back pain, unspecified (principal); R22.9 Localized swelling, mass and lump, unspecified

== ENCOUNTER → 2025-03-29 10:59 | Outpatient (BNVA) | payer OTHER, MEDICARE, SELFPAY | PROVIDERS: PCP Internal Medicine; Visit Provider Internal Medicine | DX: M54.50 Low back pain, unspecified (principal); R22.32 Localized swelling, mass and lump, left upper limb | CPT/HCPCS: 99212 ==